=== PATIENT | female | born 1960 | race African-American/Black ===

== ENCOUNTER → 2018-10-20 | Outpatient (CLI) | payer BC ==
--- NOTE | 2018-10-20 17:41 | KCIC ---
Bilateral digital screening mammograms: Reason for examination: Routine screening. Comparison is made to previous studies dated 10/25/2015 and 07/12/2014. Interpretation was made with the benefit of CAD. The skin and nipples show no abnormalities. No abnormal axillary lymph nodes are seen. The breast parenchyma is extremely dense. (Breast density: Category D.) There are no dominant masses, suspicious calcifications or architectural distortion. Impression: No evidence of malignancy. Recommend routine screening. Your patient's mammogram demonstrates that she has dense breast tissue (breast density category C or D), which could hide abnormalities, and if she has other risk factors for breast cancer that have been identified, she might benefit from supplemental screening tests that may be suggested by you as her ordering physician. Dense breast tissue, in and of itself, is a relatively common condition. Therefore, this information is not provided to cause undue concern, but rather to raise your awareness and to promote discussion with your patient regarding the presence of other risk factors, in addition to dense breast tissue. Your patient's mammography results will be sent to her. BI-RAD Category 1: Negative. "Our facility is accredited by the [employer] Mammography [employer]." This patient's information has been entered into a reminder system for the patient to be notified with the results of her examination and a target date for the next mammogram. Electronically signed by: Marilu Dallas MD (10/20/2018 5:38 PM) [id number]
== END | disposition home or self-care (01) ==
LOC: KCIC MAMMO 16:30
PROVIDERS: ATTEND Family Medicine
DX: Z12.31 Encounter for screening mammogram for malignant neoplasm of breast (principal)
CPT/HCPCS: 77067

== ENCOUNTER 2019-07-14 23:01 | Inpatient (IN) | payer BC ==
[~2019-07-14] VITALS: Ht 165.1 cm; Wt 92.1 kg
--- NOTE | 2019-07-14 23:27 | PHYS DOC ---
Adult General Chief Complaint Chief Complaint: ABDOMINAL PAIN HPI HPI Patient is a 59 year old female who presents with complaint of generalized abdominal pain with diarrhea that started earlier today. Patient states that pain has been waxing and waning and at its worst it was a 10 out of 10 and currently is about a 5-6 out of 10. She denies any nausea or vomiting but does admit to a few episodes of diarrhea. She denies any radiation of the pain. She denies any chest pain or shortness of breath. She also denies any fever. Patient is not aware of any alleviating factors and states that pain is worsened with movement and palpation.[] Review of Systems Review of Systems Constitutional: Denies fever or chills [] Respiratory: Denies cough or shortness of breath [] Cardiovascular: No additional information not addressed in HPI [] GI: Complains of abdominal pain without vomiting. Complains of diarrhea [] Integument: Denies rash or skin lesions [] Neurologic: Denies headache, focal weakness or sensory changes [] All other systems were reviewed and found to be within normal limits, except as documented in this note. Current Medications Current Medications Current Medications Medications (Trade) Dose Ordered Sig/Dottie Start Time Stop Time Status Last Admin Dose Admin Fentanyl Citrate (Fentanyl 2ml Vial) 25 mcg PRN Q15MIN PRN 07/14/19 23:30 07/15/19 23:29 07/15/19 03:15 25 MCG Info (CONTRAST GIVEN -- Rx MONITORING) 1 each PRN DAILY PRN 07/15/19 00:45 07/17/19 00:44 Iohexol (Omnipaque 300 Mg/ml) 75 ml 1X ONCE 07/15/19 01:00 07/15/19 01:01 DC 07/15/19 00:54 75 ML Ondansetron HCl (Zofran) 4 mg 1X ONCE 07/15/19 00:00 07/15/19 00:01 DC 07/15/19 00:04 4 MG Piperacillin Sod/ Tazobactam Sod 3.375 gm/Sodium Chloride 50 ml @ 100 mls/hr 1X ONCE 07/15/19 03:00 07/15/19 03:29 DC 07/15/19 02:30 100 MLS/HR Sodium Chloride 1,000 ml @ 1,000 mls/hr Q1H 07/15/19 00:00 07/15/19 00:59 DC 07/15/19 00:04 1,000 MLS/HR Allergies Allergies Allergies Coded Allergies Type Severity Reaction Last Updated Verified No Known Drug Allergies 07/14/19 No Physical Exam Physical Exam Constitutional: Well developed, well nourished, no acute distress, non-toxic appearance. [] HENT: Normocephalic, atraumatic, bilateral external ears normal, oropharynx moist, no oral exudates, nose normal. [] Eyes: PERRLA, EOMI, conjunctiva normal, no discharge. [] Neck: Normal range of motion, no tenderness, supple, no stridor. [] Cardiovascular: Regular rate and rhythm[] Lungs & Thorax: Bilateral breath sounds clear to auscultation [] Abdomen: Bowel sounds normal, soft, with moderate right upper quadrant tend erness. [] Skin: Warm, dry, no erythema, no rash. [] Extremities: No tenderness, no cyanosis, no clubbing, ROM intact. [] Neurologic: Alert and oriented X 3, no focal deficits noted. [] Current Patient Data Vital Signs Vital Signs Date Time Temp Pulse Resp B/P (MAP) Pulse Ox O2 Delivery O2 Flow Rate FiO2 07/15/19 03:15 23 Room Air 07/15/19 02:04 80 189/87 (121) 96 07/14/19 23:15 98.7 98.7 Lab Values Laboratory Tests Test 07/14/19 23:15 07/14/19 23:50 Urine Collection Type Unknown Urine Color Yellow Urine Clarity Clear Urine pH 7.5 Urine Specific [place] 1.020 Urine Protein Negative mg/dL (NEG-TRACE) Urine Glucose (UA) Negative mg/dL (NEG) Urine Ketones (Stick) Negative mg/dL (NEG) Urine Blood Small (NEG) Urine Nitrite Negative (NEG) Urine Bilirubin Negative (NEG) Urine Urobilinogen Dipstick 0.2 mg/dL (0.2 mg/dL) Urine Leukocyte Esterase Negative (NEG) Urine RBC 1-2 /HPF (0-2) Urine WBC 1-4 /HPF (0-4) Urine Squamous Epithelial Cells Few /LPF Urine Bacteria Few /HPF (0-FEW) Urine Hyaline Casts Occasional /HPF Urine Mucus Slight /LPF White Blood Count 10.4 x10^3/uL (4.0-11.0) Red Blood Count 4.80 x10^6/uL (3.50-5.40) Hemoglobin 12.4 g/dL (12.0-15.5) Hematocrit 36.1 % (36.0-47.0) Mean Corpuscular Volume 75 fL (79-100) L Mean Corpuscular Hemoglobin 26 pg (25-35) Mean Corpuscular Hemoglobin Concent 34 g/dL (31-37) Red Cell Distribution Width 15.5 % (11.5-14.5) H Platelet Count 278 x10^3/uL (140-400) Neutrophils (%) (Auto) 80 % (31-73) H Lymphocytes (%) (Auto) 15 % (24-48) L Monocytes (%) (Auto) 4 % (0-9) Eosinophils (%) (Auto) 1 % (0-3) Basophils (%) (Auto) 1 % (0-3) Neutrophils # (Auto) 8.3 x10^3/uL (1.8-7.7) H Lymphocytes # (Auto) 1.5 x10^3/uL (1.0-4.8) Monocytes # (Auto) 0.4 x10^3/uL (0.0-1.1) Eosinophils # (Auto) 0.1 x10^3/uL (0.0-0.7) Basophils # (Auto) 0.1 x10^3/uL (0.0-0.2) Sodium Level 141 mmol/L (136-145) Potassium Level 3.8 mmol/L (3.5-5.1) Chloride Level 104 mmol/L (98-107) Carbon Dioxide Level 28 mmol/L (21-32) Anion Gap 9 (6-14) Blood Urea Nitrogen 11 mg/dL (7-20) Creatinine 0.9 mg/dL (0.6-1.0) Estimated GFR (Cockcroft-Gault) 77.5 BUN/Creatinine Ratio 12 (6-20) Glucose Level 128 mg/dL (70-99) H Calcium Level 8.9 mg/dL (8.5-10.1) Total Bilirubin 0.7 mg/dL (0.2-1.0) Aspartate Amino Transferase (AST) 267 U/L (15-37) H Alanine Aminotransferase (ALT) 274 U/L (14-59) H Alkaline Phosphatase 82 U/L (46-116) Total Protein 7.4 g/dL (6.4-8.2) Albumin 4.1 g/dL (3.4-5.0) Albumin/Globulin Ratio 1.2 (1.0-1.7) Lipase 07293 U/L (73-393) H Laboratory Tests 07/14/19 23:50 Laboratory Tests 07/14/19 23:50 EKG EKG [] Radiology/Procedures Radiology/Procedures [] Impressions: PROCEDURE: CT ABD PELV W/ IV CONTRST ONLY CT abdomen and pelvis with contrast. HISTORY: Abdominal pain CT scan the abdomen pelvis was done using 75 mL Omnipaque 300 contrast. Lung bases are clear except for mild dependent atelectasis. There is diffuse fatty change in the liver. Spleen and adrenal glands are normal. Gallbladder is distended with mild gallbladder wall thickening. Common duct is dilated. There is inflammation about the duodenum and head of the pancreas. The pancreatic duct is dilated. There is some fluid about the tail the pancreas is well which is more suggestive for pancreatitis. There is either a small duodenal diverticulum or a small bubble of free air behind the head of the pancreas, I favor a duodenal diverticulum. Appendix is normal. There is no bowel obstruction. There are uterine leiomyomas. Ovaries are normal. Is no free fluid in the pelvis. IMPRESSION: 1. Distended gallbladder with mild gallbladder wall thickening. 2. Dilated common duct and pancreatic duct. 3. Mild fluid about the head and tail of the pancreas suggests pancreatitis. 4. Small bubbles of gas possibly in duodenal diverticula. 5. Multiple calcified and noncalcified uterine leiomyomas. 6. No bowel obstruction, normal appendix Course & Med Decision Making Course & Med Decision Making Pertinent Labs and Imaging studies reviewed. (See chart for details) [] Dragon Disclaimer Dragon Disclaimer This electronic medical record was generated, in whole or in part, using a voice recognition dictation system. Departure Departure Impression: Primary Impression: Acute pancreatitis Disposition: 09 ADMITTED INPATIENT Admitting Physician: SIERRA Referrals: LUCY SANCHEZ MD (PCP) Problem Qualifiers Primary Impression: Acute pancreatitis Pancreatitis type: biliary Acute pancreatitis complication: unspecified Qualified Codes: K85.10 - Biliary acute pancreatitis without necrosis or infection MARIE BUCK Jr. DO Jul 14, 2019 23:27
[2019-07-14 23:46] LABS: BILIRUBIN,URINE NEGATIVE (NEG); CLARITY,URINE CLEAR; COLOR,URINE YELLOW; NITRITE,URINE NEGATIVE (NEG); PH,URINE 7.5; PROTEIN,URINE NEGATIVE (NEG-TRACE); UROBILINOGEN,URINE 0.2 mg/dL (0.2 mg/dL)
[2019-07-14 23:57] LABS: BACTERIA,URINE FEW /HPF (0-FEW); HYALINE CASTS, URINE OCCASIONAL /HPF; SQUAMOUS EPITHELIAL CELL,UR FEW /LPF
[2019-07-14 23:59] LABS: BASO # 0.1 x10^3/uL (0.0-0.2); BASO % 1 % (0-3); EOS # 0.1 x10^3/uL (0.0-0.7); EOS % 1 % (0-3); HEMATOCRIT 36.1 % (36.0-47.0); HEMOGLOBIN 12.4 g/dL (12.0-15.5); LYMPH # 1.5 x10^3/uL (1.0-4.8); LYMPH % 15 % (24-48); MEAN CORPUSCULAR HEMOGLOBIN 26 pg (25-35); MEAN CORPUSCULAR HGB CONC 34 g/dL (31-37); MEAN CORPUSCULAR VOLUME 75 fL (79-100); MONO # 0.4 x10^3/uL (0.0-1.1); MONO % 4 % (0-9); NEUT # 8.3 x10^3/uL (1.8-7.7); NEUT % 80 % (31-73); PLATELET COUNT 278 x10^3/uL (140-400); RED CELL DISTRIBUTION WIDTH 15.5 % (11.5-14.5); WHITE BLOOD COUNT 10.4 x10^3/uL (4.0-11.0)
[2019-07-15] MEDS ORDERED: IV NORMAL SALINE 1000ML BAG 1,000 ML IV SCH
[2019-07-15] MEDS ORDERED: ONDANSETRON PF 4 MG/2 ML VIAL. IV ONE
[2019-07-15] MEDS: fentaNYL PF VIAL 100 MCG/2 ML VIAL IV PRN ×4 (00:05→07:00)
[2019-07-15 00:06] LABS: CALCIUM 8.9 mg/dL (8.5-10.1); CREATININE 0.9 mg/dL (0.6-1.0); GFR 77.5; POTASSIUM 3.8 mmol/L (3.5-5.1)
[2019-07-15 00:13] LABS: ALBUMIN 4.1 g/dL (3.4-5.0); ALBUMIN/GLOBULIN RATIO 1.2 (1.0-1.7); TOTAL BILIRUBIN 0.7 mg/dL (0.2-1.0); TOTAL PROTEIN 7.4 g/dL (6.4-8.2)
[2019-07-15] MEDS ORDERED: CONTRAST GIVEN. MC PRN (00:45)
[2019-07-15] MEDS ORDERED: IOHEXOL 300 MG/ML 100ML VIAL. IV ONE (01:00)
--- NOTE | 2019-07-15 01:51 | RAD ---
CT abdomen and pelvis with contrast. HISTORY: Abdominal pain CT scan the abdomen pelvis was done using 75 mL Omnipaque 300 contrast. Lung bases are clear except for mild dependent atelectasis. There is diffuse fatty change in the liver. Spleen and adrenal glands are normal. Gallbladder is distended with mild gallbladder wall thickening. Common duct is dilated. There is inflammation about the duodenum and head of the pancreas. The pancreatic duct is dilated. There is some fluid about the tail the pancreas is well which is more suggestive for pancreatitis. There is either a small duodenal diverticulum or a small bubble of free air behind the head of the pancreas, I favor a duodenal diverticulum. Appendix is normal. There is no bowel obstruction. There are uterine leiomyomas. Ovaries are normal. Is no free fluid in the pelvis. IMPRESSION: 1. Distended gallbladder with mild gallbladder wall thickening. 2. Dilated common duct and pancreatic duct. 3. Mild fluid about the head and tail of the pancreas suggests pancreatitis. 4. Small bubbles of gas possibly in duodenal diverticula. 5. Multiple calcified and noncalcified uterine leiomyomas. 6. No bowel obstruction, normal appendix PQRS Compliance Statement: One or more of the following individualized dose reduction techniques were utilized for this examination: 1. Automated exposure control 2. Adjustment of the mA and/or kV according to patient size 3. Use of iterative reconstruction technique Electronically signed by: Lewis Newman MD (07/15/2019 1:48 AM) [id number]
[2019-07-15] MEDS ORDERED: PIPERACILLIN/TAZOBACTAM 3.375 GM in IV NORMAL SALINE 50ML 50 ML IV ONE (03:00)
[2019-07-15] MEDS ORDERED: ONDANSETRON PF 4 MG/2 ML VIAL. IV PRN (04:00)
[2019-07-15] MEDS: IV NORMAL SALINE 1000ML BAG 1,000 ML IV SCH ×3 (04:32→23:55)
--- NOTE | 2019-07-15 05:07 | NUR ---
Pt.arrived from ED via bed W/ pancreatitis. She is A/O x4 and will make needs known.
[2019-07-15 05:09] VITALS: BP 170/79
[2019-07-15 07:00] VITALS: BP 149/72
[2019-07-15] MEDS ORDERED: LOSA100T14 PO (07:25)
[2019-07-15] MEDS ORDERED: SIMV10TA15 PO (07:25)
[2019-07-15 11:00] VITALS: BP 171/85
--- NOTE | 2019-07-15 12:09 | NUR ---
SW following. Discussed with RN, pt is from home with family. RN advised no SW needs at this time. SW will continue to follow should any discharge planning needs arise.
--- NOTE | 2019-07-15 12:53 | PDOC1 ---
History and Physical Date of Admission Date of Admission DATE: 07/15/19 TIME: 12:51 Identification/Chief Complaint Chief Complaint SEEN IN ER , 59 year old female who presents with complaint of generalized abdominal pain with diarrhea that started earlier 07/14 . Patient states that pain has been waxing and waning and at its worst it was a 10 out of 10 and currently is about a 5-6 out of 10. She denies any nausea or vomiting but does admit to a few episodes of diarrhea. She denies any radiation of the pain. She denies any chest pain or shortness of breath. She also denies any fever. no significant etoh intake Past Medical History Cardiovascular: HTN Heme/Onc: No pertinent hx Rheumatologic: No pertinent hx Renal/: No pertinent hx Endocrine: No pertinent hx Family History Family History: Diabetes, Hypertension Social History Smoke: No ALCOHOL: none Drugs: None Current Problem List Problem List Problems Medical Problems: (1) Acute pancreatitis Status: Acute Current Medications Current Medications Current Medications Fentanyl Citrate (Fentanyl 2ml Vial) 25 mcg PRN Q15MIN PRN IV PAIN GREATER THAN 3/10 Last administered on 07/15/19at 03:15; Start 07/14/19 at 23:30; Stop 0 at 23:29 Sodium Chloride 1,000 ml @ 1,000 mls/hr Q1H IV Last administered on 07/15/19at 00:04; Start 07/15/19 at 00:00; Stop 07/15/19 at 00:59; Status DC Ondansetron HCl (Zofran) 4 mg 1X ONCE IV Last administered on 07/15/19at 00:04; Start 07/15/19 at 00:00; Stop 07/15/19 at 00:01; Status DC Iohexol (Omnipaque 300 Mg/ml) 75 ml 1X ONCE IV Last administered on 07/15/19at 00:54; Start 07/15/19 at 01:00; Stop 07/15/19 at 01:01; Status DC Info (CONTRAST GIVEN -- Rx MONITORING) 1 each PRN DAILY PRN MC SEE COMMENTS; Start 07/15/19 at 00:45; Stop 07/17/19 at 00:44 Piperacillin Sod/ Tazobactam Sod 3.375 gm/Sodium Chloride 50 ml @ 100 mls/hr 1X ONCE IV Last administered on 07/15/19at 02:30; Start 07/15/19 at 03:00; Stop 07/15/19 at 03:29; Status DC Ondansetron HCl (Zofran) 4 mg PRN Q8HRS PRN IV NAUSEA/VOMITING 1ST CHOICE; Start 07/15/19 at 04:00; Stop 07/16/19 at 03:59 Fentanyl Citrate (Fentanyl 2ml Vial) 50 mcg PRN Q1HR PRN IV SEVERE PAIN 7-10 Last administered on 07/15/19at 07:00; Start 07/15/19 at 04:00; Stop 07/16/19 at 03:59 Sodium Chloride 1,000 ml @ 125 mls/hr Q8H IV Last administered on 07/15/19at 12:19; Start 07/15/19 at 04:00; Stop 07/16/19 at 03:59 Active Scripts Active Reported Simvastatin 10 Mg Tablet 10 Mg PO HS Losartan Potassium 100 Mg Tablet 100 Mg PO DAILY Allergies Allergies: Coded Allergies: No Known Drug Allergies (Unverified , 07/14/19) ROS Review of System Review of Systems Review of Systems Constitutional: Denies fever or chills [] Respiratory: Denies cough or shortness of breath [] Cardiovascular: No additional information not addressed in HPI [] GI: Complains of abdominal pain without vomiting. Complains of diarrhea [] Integument: Denies rash or skin lesions [] Neurologic: Denies headache, focal weakness or sensory changes [] 14 PT systems were reviewed and found to be within normal limits, except as documented General: No: Chills, Night Sweats, Fatigue, Malaise, Appetite, Other HEENT: No: Heacaches, Visual Changes, Hearing change, Nasal congestion, Nasal discharge, Oral lesions, Sinus pain, Sore Throat, Epistaxis, Sneezing, Snoring, Tinnitus, Vertigo, Vocal changes, Other ALLERGY AND IMMUNOLOGY: No: Hives, Insect Bite Sensitivity, Itchy/Watery Eyes, Nasal Congestion, Post Nasal Drip, Seasonal Allergies, Other Hematological and Lymphatic: No: Bleeding Problems, Blood Clots, Blood Transfusions, Brusing, Night Sweats, Pallor, Swollen Lymph Nodes, Other Gastrointestinal: Yes Abdominal Pain; No Nausea, No Vomiting, No Diarrhea, No Constipation, No Melena, No Hematochezia, No Other Genitourinary: No Dysuria, No Frequency, No Incontinence, No Hematuria, No Retention, No Discharge, No Urgency, No Pain, No Flank Pain, No Other, No , No , No , No , No , No , No Musculoskeletal: No Gait Disturbance, No Joint Pain, No Joint Stiffness, No Joint Swelling, No Muscle Pain, No Muscular Weakness, No Pain In:, No Swelling In:, No Other Physical Exam Physical Exam Physical Exam Physical Exam Constitutional: Well developed, well nourished, no acute distress, non-toxic appearance. [] HENT: Normocephalic, atraumatic, bilateral external ears normal, oropharynx moist, no oral exudates, nose normal. [] Eyes: PERRLA, EOMI, conjunctiva normal, no discharge. [] Neck: Normal range of motion, no tenderness, supple, no stridor. [] Cardiovascular: Regular rate and rhythm[] Lungs & Thorax: Bilateral breath sounds clear to auscultation [] Abdomen: Bowel sounds normal, soft, with moderate right upper quadrant tenderness. [] Skin: Warm, dry, no erythema, no rash. [] Extremities: No tenderness, no cyanosis, no clubbing, ROM intact. [] Neurologic: Alert and oriented X 3, no focal deficits noted. [] General: Alert, Oriented X3, Cooperative, No acute distress HEENT: Atraumatic, EOMI, Mucous membr. moist/pink Lungs: Clear to auscultation Heart: RRR, no thrills Breasts: Not examined Rectal Exam: not examined Extremities: No cyanosis, No edema Neuro: Normal speech, Sensation intact, Cranial nerves 3-12 NL Psych/Mental Status: Mental status NL, Mood NL Vitals Vitals Vital Signs Date Time Temp Pulse Resp B/P (MAP) Pulse Ox O2 Delivery O2 Flow Rate FiO2 07/15/19 11:00 97.9 68 171/85 (113) 94 Room Air 97.9 07/15/19 07:00 18 Labs Labs Laboratory Tests Test 07/14/19 23:15 07/14/19 23:50 Urine Collection Type Unknown Urine Color Yellow Urine Clarity Clear Urine pH 7.5 Urine Specific [place] 1.020 Urine Protein Negative mg/dL (NEG-TRACE) Urine Glucose (UA) Negative mg/dL (NEG) Urine Ketones (Stick) Negative mg/dL (NEG) Urine Blood Small (NEG) Urine Nitrite Negative (NEG) Urine Bilirubin Negative (NEG) Urine Urobilinogen Dipstick 0.2 mg/dL (0.2 mg/dL) Urine Leukocyte Esterase Negative (NEG) Urine RBC 1-2 /HPF (0-2) Urine WBC 1-4 /HPF (0-4) Urine Squamous Epithelial Cells Few /LPF Urine Bacteria Few /HPF (0-FEW) Urine Hyaline Casts Occasional /HPF Urine Mucus Slight /LPF White Blood Count 10.4 x10^3/uL (4.0-11.0) Red Blood Count 4.80 x10^6/uL (3.50-5.40) Hemoglobin 12.4 g/dL (12.0-15.5) Hematocrit 36.1 % (36.0-47.0) Mean Corpuscular Volume 75 fL (79-100) Mean Corpuscular Hemoglobin 26 pg (25-35) Mean Corpuscular Hemoglobin Concent 34 g/dL (31-37) Red Cell Distribution Width 15.5 % (11.5-14.5) Platelet Count 278 x10^3/uL (140-400) Neutrophils (%) (Auto) 80 % (31-73) Lymphocytes (%) (Auto) 15 % (24-48) Monocytes (%) (Auto) 4 % (0-9) Eosinophils (%) (Auto) 1 % (0-3) Basophils (%) (Auto) 1 % (0-3) Neutrophils # (Auto) 8.3 x10^3/uL (1.8-7.7) Lymphocytes # (Auto) 1.5 x10^3/uL (1.0-4.8) Monocytes # (Auto) 0.4 x10^3/uL (0.0-1.1) Eosinophils # (Auto) 0.1 x10^3/uL (0.0-0.7) Basophils # (Auto) 0.1 x10^3/uL (0.0-0.2) Sodium Level 141 mmol/L (136-145) Potassium Level 3.8 mmol/L (3.5-5.1) Chloride Level 104 mmol/L (98-107) Carbon Dioxide Level 28 mmol/L (21-32) Anion Gap 9 (6-14) Blood Urea Nitrogen 11 mg/dL (7-20) Creatinine 0.9 mg/dL (0.6-1.0) Estimated GFR (Cockcroft-Gault) 77.5 BUN/Creatinine Ratio 12 (6-20) Glucose Level 128 mg/dL (70-99) Calcium Level 8.9 mg/dL (8.5-10.1) Total Bilirubin 0.7 mg/dL (0.2-1.0) Aspartate Amino Transf (AST/SGOT) 267 U/L (15-37) Alanine Aminotransferase (ALT/SGPT) 274 U/L (14-59) Alkaline Phosphatase 82 U/L (46-116) Total Protein 7.4 g/dL (6.4-8.2) Albumin 4.1 g/dL (3.4-5.0) Albumin/Globulin Ratio 1.2 (1.0-1.7) Lipase 02611 U/L (73-393) Laboratory Tests Test 07/14/19 23:15 07/14/19 23:50 Urine Collection Type Unknown Urine Color Yellow Urine Clarity Clear Urine pH 7.5 Urine Specific [place] 1.020 Urine Protein Negative mg/dL (NEG-TRACE) Urine Glucose (UA) Negative mg/dL (NEG) Urine Ketones (Stick) Negative mg/dL (NEG) Urine Blood Small (NEG) Urine Nitrite Negative (NEG) Urine Bilirubin Negative (NEG) Urine Urobilinogen Dipstick 0.2 mg/dL (0.2 mg/dL) Urine Leukocyte Esterase Negative (NEG) Urine RBC 1-2 /HPF (0-2) Urine WBC 1-4 /HPF (0-4) Urine Squamous Epithelial Cells Few /LPF Urine Bacteria Few /HPF (0-FEW) Urine Hyaline Casts Occasional /HPF Urine Mucus Slight /LPF White Blood Count 10.4 x10^3/uL (4.0-11.0) Red Blood Count 4.80 x10^6/uL (3.50-5.40) Hemoglobin 12.4 g/dL (12.0-15.5) Hematocrit 36.1 % (36.0-47.0) Mean Corpuscular Volume 75 fL (79-100) Mean Corpuscular Hemoglobin 26 pg (25-35) Mean Corpuscular Hemoglobin Concent 34 g/dL (31-37) Red Cell Distribution Width 15.5 % (11.5-14.5) Platelet Count 278 x10^3/uL (140-400) Neutrophils (%) (Auto) 80 % (31-73) Lymphocytes (%) (Auto) 15 % (24-48) Monocytes (%) (Auto) 4 % (0-9) Eosinophils (%) (Auto) 1 % (0-3) Basophils (%) (Auto) 1 % (0-3) Neutrophils # (Auto) 8.3 x10^3/uL (1.8-7.7) Lymphocytes # (Auto) 1.5 x10^3/uL (1.0-4.8) Monocytes # (Auto) 0.4 x10^3/uL (0.0-1.1) Eosinophils # (Auto) 0.1 x10^3/uL (0.0-0.7) Basophils # (Auto) 0.1 x10^3/uL (0.0-0.2) Sodium Level 141 mmol/L (136-145) Potassium Level 3.8 mmol/L (3.5-5.1) Chloride Level 104 mmol/L (98-107) Carbon Dioxide Level 28 mmol/L (21-32) Anion Gap 9 (6-14) Blood Urea Nitrogen 11 mg/dL (7-20) Creatinine 0.9 mg/dL (0.6-1.0) Estimated GFR (Cockcroft-Gault) 77.5 BUN/Creatinine Ratio 12 (6-20) Glucose Level 128 mg/dL (70-99) Calcium Level 8.9 mg/dL (8.5-10.1) Total Bilirubin 0.7 mg/dL (0.2-1.0) Aspartate Amino Transf (AST/SGOT) 267 U/L (15-37) Alanine Aminotransferase (ALT/SGPT) 274 U/L (14-59) Alkaline Phosphatase 82 U/L (46-116) Total Protein 7.4 g/dL (6.4-8.2) Albumin 4.1 g/dL (3.4-5.0) Albumin/Globulin Ratio 1.2 (1.0-1.7) Lipase 93636 U/L (73-393) Images Images PATIENT: MARTY BARNES ACCOUNT: [id number] : 1960 LOCATION: ER AGE: 59 SEX: F EXAM STATUS: REG ER ORD. PHYSICIAN: MARIE BUCK Jr. DO REASON: abd pain PROCEDURE: CT ABD PELV W/ IV CONTRST ONLY CT abdomen and pelvis with contrast. HISTORY: Abdominal pain CT scan the abdomen pelvis was done using 75 mL Omnipaque 300 contrast. Lung bases are clear except for mild dependent atelectasis. There is diffuse fatty change in the liver. Spleen and adrenal glands are normal. Gallbladder is distended with mild gallbladder wall thickening. Common duct is dilated. There is inflammation about the duodenum and head of the pancreas. The pancreatic duct is dilated. There is some fluid about the tail the pancreas is well which is more suggestive for pancreatitis. There is either a small duodenal diverticulum or a small bubble of free air behind the head of the pancreas, I favor a duodenal diverticulum. Appendix is normal. There is no bowel obstruction. There are uterine leiomyomas. Ovaries are normal. Is no free fluid in the pelvis. IMPRESSION: 1. Distended gallbladder with mild gallbladder wall thickening. 2. Dilated common duct and pancreatic duct. 3. Mild fluid about the head and tail of the pancreas suggests pancreatitis. 4. Small bubbles of gas possibly in duodenal diverticula. 5. Multiple calcified and noncalcified uterine leiomyomas. 6. No bowel obstruction, normal appendix VTE Prophylaxis Ordered VTE Prophylaxis Devices: Yes VTE Pharmacological Prophylaxi: Yes Assessment/Plan Assessment/Plan IMPRESSION: 1. Distended gallbladder with mild gallbladder wall thickening. 2. Dilated common duct and pancreatic duct. 3. fluid about the head and tail of the pancreas suggests pancreatitis. 4. Small bubbles of gas possibly in duodenal diverticula. 5. Multiple calcified and noncalcified uterine leiomyomas. 6, hx htn 7. morbid obesity PLAN ADMIT BOWEL REST IV FLUID SUPPORT GI CONSULT GEN SURGERY CONSULT NPO abdominal sono HUA SUÁREZ MD Jul 15, 2019 12:53
--- NOTE | 2019-07-15 13:48 | PDOC2 ---
GI CONSULT Reason For Consult: pancreatitis HPI: HPI: 59 y/o female admitted through ER last night. While at home watching tv yesterday evening, upper/mid abdominal pain began, gradually became more intense. "Really bad" pain, sometimes "vibrates." No n/v. Had three loose/soft stools at home, no since admission. Labs noted elevated lipase, AST, and ALT. MCV low at 75. On CT: fatty liver, distended GB w/ midl GB wall thickening, dilated CBD and PD, inflammation about duodenum and head of pancreas, fluid about the tail of pancreas, either small duodenal diverticulum or small bubble of free air behind head of pancreas, and uterine leiomyomas. No reflux/heartburn, n/v, constipation, hematochezia, melena, change in appetite, or weight loss. Got a chicken bone stuck in her throat less than a month ago, went to [facility] at the [facility] and was sent to a hospital in [place]. Sounds like she underwent EGD - "it was gone but he could tell where it scratched my throat." No pain like this in the past but sometimes gets gas/discomfort after eating popcorn. Had a screening colonoscopy @ [facility] about 2 years ago and was told to return in 10 years. No GB, liver, pancreas, or PUD history. Denies NSAID use but takes Mucinex frequently. Supposed to see PCP soon for refill of BP med. Also says she has high cholesterol but stopped taking her meds awhile ago "because lots of people don't take medicines." PMH: PMH: HTN, HLD [employer] procedure "with dye" years ago to look for endometriosis FH: Family History: Cancer (brother - lung cancer that spread to his liver from agent orange) Social History: Smoke: No ALCOHOL: rare (maybe one drink 3 times yearly for birthdays) Drugs: None ROS: GEN: Denies fevers, chills, sweats HEENT: Denies blurred vision, sore throat CV: Denies chest pain RESP: Denies shortness of air, cough GI: Per HPI : Denies hematuria, dysuria ENDO: Denies weight changes NEURO: Denies confusion, dizziness MSK: Denies weakness, joint pain/swelling SKIN: Denies jaundice, pruritus Vitals: Vitals: Vital Signs Date Time Temp Pulse Resp B/P (MAP) Pulse Ox O2 Delivery O2 Flow Rate FiO2 07/15/19 11:00 97.9 68 171/85 (113) 94 Room Air 97.9 07/15/19 07:00 18 Labs: Labs: Laboratory Tests Test 07/14/19 23:15 07/14/19 23:50 Urine Collection Type Unknown Urine Color Yellow Urine Clarity Clear Urine pH 7.5 Urine Specific [place] 1.020 Urine Protein Negative mg/dL (NEG-TRACE) Urine Glucose (UA) Negative mg/dL (NEG) Urine Ketones (Stick) Negative mg/dL (NEG) Urine Blood Small (NEG) Urine Nitrite Negative (NEG) Urine Bilirubin Negative (NEG) Urine Urobilinogen Dipstick 0.2 mg/dL (0.2 mg/dL) Urine Leukocyte Esterase Negative (NEG) Urine RBC 1-2 /HPF (0-2) Urine WBC 1-4 /HPF (0-4) Urine Squamous Epithelial Cells Few /LPF Urine Bacteria Few /HPF (0-FEW) Urine Hyaline Casts Occasional /HPF Urine Mucus Slight /LPF White Blood Count 10.4 x10^3/uL (4.0-11.0) Red Blood Count 4.80 x10^6/uL (3.50-5.40) Hemoglobin 12.4 g/dL (12.0-15.5) Hematocrit 36.1 % (36.0-47.0) Mean Corpuscular Volume 75 fL (79-100) Mean Corpuscular Hemoglobin 26 pg (25-35) Mean Corpuscular Hemoglobin Concent 34 g/dL (31-37) Red Cell Distribution Width 15.5 % (11.5-14.5) Platelet Count 278 x10^3/uL (140-400) Neutrophils (%) (Auto) 80 % (31-73) Lymphocytes (%) (Auto) 15 % (24-48) Monocytes (%) (Auto) 4 % (0-9) Eosinophils (%) (Auto) 1 % (0-3) Basophils (%) (Auto) 1 % (0-3) Neutrophils # (Auto) 8.3 x10^3/uL (1.8-7.7) Lymphocytes # (Auto) 1.5 x10^3/uL (1.0-4.8) Monocytes # (Auto) 0.4 x10^3/uL (0.0-1.1) Eosinophils # (Auto) 0.1 x10^3/uL (0.0-0.7) Basophils # (Auto) 0.1 x10^3/uL (0.0-0.2) Sodium Level 141 mmol/L (136-145) Potassium Level 3.8 mmol/L (3.5-5.1) Chloride Level 104 mmol/L (98-107) Carbon Dioxide Level 28 mmol/L (21-32) Anion Gap 9 (6-14) Blood Urea Nitrogen 11 mg/dL (7-20) Creatinine 0.9 mg/dL (0.6-1.0) Estimated GFR (Cockcroft-Gault) 77.5 BUN/Creatinine Ratio 12 (6-20) Glucose Level 128 mg/dL (70-99) Calcium Level 8.9 mg/dL (8.5-10.1) Total Bilirubin 0.7 mg/dL (0.2-1.0) Aspartate Amino Transf (AST/SGOT) 267 U/L (15-37) Alanine Aminotransferase (ALT/SGPT) 274 U/L (14-59) Alkaline Phosphatase 82 U/L (46-116) Total Protein 7.4 g/dL (6.4-8.2) Albumin 4.1 g/dL (3.4-5.0) Albumin/Globulin Ratio 1.2 (1.0-1.7) Lipase 44211 U/L (73-393) Allergies: Coded Allergies: No Known Drug Allergies (Unverified , 07/14/19) Medications: Current Medications Medications (Trade) Dose Ordered Sig/Dottie Route PRN Reason Start Time Stop Time Status Last Admin Dose Admin Fentanyl Citrate (Fentanyl 2ml Vial) 25 mcg PRN Q15MIN PRN IV PAIN GREATER THAN 3/10 07/14/19 23:30 07/15/19 23:29 07/15/19 03:15 Sodium Chloride 1,000 ml @ 1,000 mls/hr Q1H IV 07/15/19 00:00 07/15/19 00:59 DC 07/15/19 00:04 Ondansetron HCl (Zofran) 4 mg 1X ONCE IV 07/15/19 00:00 07/15/19 00:01 DC 07/15/19 00:04 Iohexol (Omnipaque 300 Mg/ml) 75 ml 1X ONCE IV 07/15/19 01:00 07/15/19 01:01 DC 07/15/19 00:54 Piperacillin Sod/ Tazobactam Sod 3.375 gm/Sodium Chloride 50 ml @ 100 mls/hr 1X ONCE IV 07/15/19 03:00 07/15/19 03:29 DC 07/15/19 02:30 Fentanyl Citrate (Fentanyl 2ml Vial) 50 mcg PRN Q1HR PRN IV SEVERE PAIN 7-10 07/15/19 04:00 07/16/19 03:59 07/15/19 07:00 Sodium Chloride 1,000 ml @ 125 mls/hr Q8H IV 07/15/19 04:00 07/16/19 03:59 07/15/19 12:19 Imaging: Imaging: CT A/P Lung bases are clear except for mild dependent atelectasis. There is diffuse fatty change in the liver. Spleen and adrenal glands are normal. Gallbladder is distended with mild gallbladder wall thickening. Common duct is dilated. There is inflammation about the duodenum and head of the pancreas. The pancreatic duct is dilated. There is some fluid about the tail the pancreas is well which is more suggestive for pancreatitis. There is either a small duodenal diverticulum or a small bubble of free air behind the head of the pancreas, I favor a duodenal diverticulum. Appendixis normal. There is no bowel obstruction. There are uterine leiomyomas. Ovaries are normal. Is no free fluid in the pelvis. IMPRESSION: 1. Distended gallbladder with mild gallbladder wall thickening. 2. Dilated common duct and pancreatic duct. 3. Mild fluid about the head and tail of the pancreas suggests pancreatitis. 4. Small bubbles of gas possibly in duodenal diverticula. 5. Multiple calcified and noncalcified uterine leiomyomas. 6. 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 Check triglycerides and iron profile, await US, request records of recent EGD and past colonoscopy. DIANE GONZALES Jul 15, 2019 13:48
--- NOTE | 2019-07-15 14:37 | RAD ---
Examination: ABDOMEN COMPLETE History: Abdominal pain Comparison/Correlation: 07/15/2019 CT Abd and Pelvis with contrast exam Findings: Abdominal ultrasound exam was performed. Fatty infiltration of liver is present. Liver length of 17.2 cm noted. Portal venous flow is normal. Gallbladder wall thickness is 0.6 cm present. Pericholecystic fluid is minimal. No cholelithiasis. Common bile duct of up to 1.3 cm diameter noted. No intrahepatic biliary dilatation. Right kidney measures 11.3 cm x 4.2 cm x 5 cm. The left kidney measures 12.1 cm 5.2 x 4.5 cm. No hydronephrosis. Renal contours are unremarkable. Proximal pancreas has a normal echotexture. Pancreatic ductal dilatation of 0.44 cm evident.. Distal pancreas is obscured by bowel gas. Spleen measures 11 cm longitudinal. Abdominal aorta is unremarkable but only partially visualized. Inferior vena cava is partially obscured. Impression: Thickened gallbladder wall with minimal pericholecystic fluid of concern for acute cholecystitis in the appropriate clinical setting. No cholelithiasis or intrahepatic biliary dilatation. Distention of the common bile duct and slight distention of the pancreatic duct are noted and of indeterminate significance. Electronically signed by: Ben Dave MD (07/15/2019 2:34 PM) [facility]
[2019-07-15 15:00] VITALS: BP 176/86
[2019-07-15] MEDS: hydrALAZINE 20 MG/ML VIAL. IVP PRN ×2 (15:18→21:04)
--- NOTE | 2019-07-15 17:28 | RAD ---
HEPATOBILIARY SCAN History: Abnormal gallbladder. Abdominal pain x1 day. Abnormal CT. Acute pancreatitis. Comparison: Complete abdominal ultrasound and CT abdomen and pelvis with contrast, earlier same day. Procedure: Serial static images are obtained of the liver and biliary system in the frontal projection following IV administration of 5.5 mCi of Technetium 99m Choletec. Findings: There is prompt hepatic clearance of tracer from the blood pool. There is homogeneous distribution throughout the liver. Tracer in common bile duct is identified beginning at 5 minutes. Tracer in expected location of the gallbladder is initially seen at 20 minutes. Tracer in small bowel is identified at 45 minutes. Tracer in gallbladder is confirmed with a right lateral image. IMPRESSION: The cystic duct and common bile duct are patent. Negative for acute cholecystitis. Electronically signed by: Doug Ca MD (07/15/2019 5:25 PM) [id number]
[2019-07-15 19:00] VITALS: BP 174/97
[2019-07-15] MEDS: FAMOTIDINE 20 MG/2 ML VIAL IVP SCH (20:28)
[2019-07-15 23:00] VITALS: BP 168/93
[2019-07-16] MEDS: fentaNYL PF VIAL 100 MCG/2 ML VIAL IV PRN (00:28)
[2019-07-16 03:00] VITALS: BP 180/96
[2019-07-16 07:00] VITALS: BP 177/78
[2019-07-16] MEDS ORDERED: fentaNYL PF VIAL 100 MCG/2 ML VIAL IVP PRN (07:45)
[2019-07-16 08:57] LABS: BASO # 0.1 x10^3/uL (0.0-0.2); BASO % 1 % (0-3); EOS # 0.1 x10^3/uL (0.0-0.7); EOS % 1 % (0-3); HEMATOCRIT 35.6 % (36.0-47.0); HEMOGLOBIN 11.9 g/dL (12.0-15.5); LYMPH # 2.3 x10^3/uL (1.0-4.8); LYMPH % 24 % (24-48); MEAN CORPUSCULAR HEMOGLOBIN 26 pg (25-35); MEAN CORPUSCULAR HGB CONC 34 g/dL (31-37); MEAN CORPUSCULAR VOLUME 76 fL (79-100); MONO # 0.5 x10^3/uL (0.0-1.1); MONO % 5 % (0-9); NEUT % 70 % (31-73); PLATELET COUNT 283 x10^3/uL (140-400); RED BLOOD COUNT 4.66 x10^6/uL (3.50-5.40); RED CELL DISTRIBUTION WIDTH 15.4 % (11.5-14.5)
--- NOTE | 2019-07-16 09:24 | PDOC ---
PROGRESS NOTES History of Present Illness History of Present Illness VTE Prophylaxis Ordered VTE Prophylaxis Devices: Yes VTE Pharmacological Prophylaxi: Yes Assessment/Plan Assessment/Plan IMPRESSION: 1. Distended gallbladder with mild gallbladder wall thickening. 2. Dilated common duct and pancreatic duct. 3. fluid about the head and tail of the pancreas suggests pancreatitis. 4. Small bubbles of gas possibly in duodenal diverticula. 5. Multiple calcified and noncalcified uterine leiomyomas. 6, hx htn 7. morbid obesity 8. HEADACHE 07/16 NEW PLAN ADMIT BOWEL REST IV FLUID SUPPORT GI CONSULT GEN SURGERY CONSULT REVIEWED NPO abdominal sono 07/16 LIPASE 1284 ///RUQ PAIN BETTER Vitals Vitals Vital Signs Date Time Temp Pulse Resp B/P (MAP) Pulse Ox O2 Delivery O2 Flow Rate FiO2 07/16/19 07:00 97.7 82 177/78 (111) 95 Room Air 97.7 07/16/19 03:00 16 Physical Exam General: Alert, Oriented X3, Cooperative, No acute distress Heart: Regular rate, Normal S1 Abdomen: Normal bowel sounds, Soft, No tenderness Extremities: No cyanosis, No edema Labs LABS Laboratory Tests Test 07/15/19 15:00 07/16/19 07:50 Iron Level 39 ug/dL (50-170) Total Iron Binding Capacity 276 ug/dL (250-450) Iron Saturation 14 % (15-34) Triglycerides Level 73 mg/dL (0-150) White Blood Count 10.0 x10^3/uL (4.0-11.0) Red Blood Count 4.66 x10^6/uL (3.50-5.40) Hemoglobin 11.9 g/dL (12.0-15.5) Hematocrit 35.6 % (36.0-47.0) Mean Corpuscular Volume 76 fL (79-100) Mean Corpuscular Hemoglobin 26 pg (25-35) Mean Corpuscular Hemoglobin Concent 34 g/dL (31-37) Red Cell Distribution Width 15.4 % (11.5-14.5) Platelet Count 283 x10^3/uL (140-400) Neutrophils (%) (Auto) 70 % (31-73) Lymphocytes (%) (Auto) 24 % (24-48) Monocytes (%) (Auto) 5 % (0-9) Eosinophils (%) (Auto) 1 % (0-3) Basophils (%) (Auto) 1 % (0-3) Neutrophils # (Auto) 7.0 x10^3/uL (1.8-7.7) Lymphocytes # (Auto) 2.3 x10^3/uL (1.0-4.8) Monocytes # (Auto) 0.5 x10^3/uL (0.0-1.1) Eosinophils # (Auto) 0.1 x10^3/uL (0.0-0.7) Basophils # (Auto) 0.1 x10^3/uL (0.0-0.2) Assessment and Plan Assessmemt and Plan Problems Medical Problems: (1) Acute pancreatitis Status: Acute Comment Review of Relevant I have reviewed the following items vaughn (where applicable) has been applied. Labs Laboratory Tests Test 07/14/19 23:15 07/14/19 23:50 07/15/19 15:00 07/16/19 07:50 Urine Collection Type Unknown Urine Color Yellow Urine Clarity Clear Urine pH 7.5 Urine Specific [place] 1.020 Urine Protein Negative mg/dL (NEG-TRACE) Urine Glucose (UA) Negative mg/dL (NEG) Urine Ketones (Stick) Negative mg/dL (NEG) Urine Blood Small (NEG) Urine Nitrite Negative (NEG) Urine Bilirubin Negative (NEG) Urine Urobilinogen Dipstick 0.2 mg/dL (0.2 mg/dL) Urine Leukocyte Esterase Negative (NEG) Urine RBC 1-2 /HPF (0-2) Urine WBC 1-4 /HPF (0-4) Urine Squamous Epithelial Cells Few /LPF Urine Bacteria Few /HPF (0-FEW) Urine Hyaline Casts Occasional /HPF Urine Mucus Slight /LPF White Blood Count 10.4 x10^3/uL (4.0-11.0) 10.0 x10^3/uL (4.0-11.0) Red Blood Count 4.80 x10^6/uL (3.50-5.40) 4.66 x10^6/uL (3.50-5.40) Hemoglobin 12.4 g/dL (12.0-15.5) 11.9 g/dL (12.0-15.5) Hematocrit 36.1 % (36.0-47.0) 35.6 % (36.0-47.0) Mean Corpuscular Volume 75 fL (79-100) 76 fL (79-100) Mean Corpuscular Hemoglobin 26 pg (25-35) 26 pg (25-35) Mean Corpuscular Hemoglobin Concent 34 g/dL (31-37) 34 g/dL (31-37) Red Cell Distribution Width 15.5 % (11.5-14.5) 15.4 % (11.5-14.5) Platelet Count 278 x10^3/uL (140-400) 283 x10^3/uL (140-400) Neutrophils (%) (Auto) 80 % (31-73) 70 % (31-73) Lymphocytes (%) (Auto) 15 % (24-48) 24 % (24-48) Monocytes (%) (Auto) 4 % (0-9) 5 % (0-9) Eosinophils (%) (Auto) 1 % (0-3) 1 % (0-3) Basophils (%) (Auto) 1 % (0-3) 1 % (0-3) Neutrophils # (Auto) 8.3 x10^3/uL (1.8-7.7) 7.0 x10^3/uL (1.8-7.7) Lymphocytes # (Auto) 1.5 x10^3/uL (1.0-4.8) 2.3 x10^3/uL (1.0-4.8) Monocytes # (Auto) 0.4 x10^3/uL (0.0-1.1) 0.5 x10^3/uL (0.0-1.1) Eosinophils # (Auto) 0.1 x10^3/uL (0.0-0.7) 0.1 x10^3/uL (0.0-0.7) Basophils # (Auto) 0.1 x10^3/uL (0.0-0.2) 0.1 x10^3/uL (0.0-0.2) Sodium Level 141 mmol/L (136-145) Potassium Level 3.8 mmol/L (3.5-5.1) Chloride Level 104 mmol/L (98-107) Carbon Dioxide Level 28 mmol/L (21-32) Anion Gap 9 (6-14) Blood Urea Nitrogen 11 mg/dL (7-20) Creatinine 0.9 mg/dL (0.6-1.0) Estimated GFR (Cockcroft-Gault) 77.5 BUN/Creatinine Ratio 12 (6-20) Glucose Level 128 mg/dL (70-99) Calcium Level 8.9 mg/dL (8.5-10.1) Total Bilirubin 0.7 mg/dL (0.2-1.0) Aspartate Amino Transf (AST/SGOT) 267 U/L (15-37) Alanine Aminotransferase (ALT/SGPT) 274 U/L (14-59) Alkaline Phosphatase 82 U/L (46-116) Total Protein 7.4 g/dL (6.4-8.2) Albumin 4.1 g/dL (3.4-5.0) Albumin/Globulin Ratio 1.2 (1.0-1.7) Lipase 55805 U/L (73-393) Iron Level 39 ug/dL (50-170) Total Iron Binding Capacity 276 ug/dL (250-450) Iron Saturation 14 % (15-34) Triglycerides Level 73 mg/dL (0-150) Laboratory Tests Test 07/15/19 15:00 07/16/19 07:50 Iron Level 39 ug/dL (50-170) Total Iron Binding Capacity 276 ug/dL (250-450) Iron Saturation 14 % (15-34) Triglycerides Level 73 mg/dL (0-150) White Blood Count 10.0 x10^3/uL (4.0-11.0) Red Blood Count 4.66 x10^6/uL (3.50-5.40) Hemoglobin 11.9 g/dL (12.0-15.5) Hematocrit 35.6 % (36.0-47.0) Mean Corpuscular Volume 76 fL (79-100) Mean Corpuscular Hemoglobin 26 pg (25-35) Mean Corpuscular Hemoglobin Concent 34 g/dL (31-37) Red Cell Distribution Width 15.4 % (11.5-14.5) Platelet Count 283 x10^3/uL (140-400) Neutrophils (%) (Auto) 70 % (31-73) Lymphocytes (%) (Auto) 24 % (24-48) Monocytes (%) (Auto) 5 % (0-9) Eosinophils (%) (Auto) 1 % (0-3) Basophils (%) (Auto) 1 % (0-3) Neutrophils # (Auto) 7.0 x10^3/uL (1.8-7.7) Lymphocytes # (Auto) 2.3 x10^3/uL (1.0-4.8) Monocytes # (Auto) 0.5 x10^3/uL (0.0-1.1) Eosinophils # (Auto) 0.1 x10^3/uL (0.0-0.7) Basophils # (Auto) 0.1 x10^3/uL (0.0-0.2) Medications Current Medications Fentanyl Citrate (Fentanyl 2ml Vial) 25 mcg PRN Q15MIN PRN IV PAIN GREATER THAN 3/10 Last administered on 07/15/19at 03:15; Start 07/14/19 at 23:30; Stop 07/15/19 at 23:29; Status DC Sodium Chloride 1,000 ml @ 1,000 mls/hr Q1H IV Last administered on 07/15/19at 00:04; Start 07/15/19 at 00:00; Stop 07/15/19 at 00:59; Status DC Ondansetron HCl (Zofran) 4 mg 1X ONCE IV Last administered on 07/15/19at 00:04; Start 07/15/19 at 00:00; Stop 07/15/19 at 00:01; Status DC Iohexol (Omnipaque 300 Mg/ml) 75 ml 1X ONCE IV Last administered on 07/15/19at 00:54; Start 07/15/19 at 01:00; Stop 07/15/19 at 01:01; Status DC Info (CONTRAST GIVEN -- Rx MONITORING) 1 each PRN DAILY PRN MC SEE COMMENTS; Start 07/15/19 at 00:45; Stop 07/17/19 at 00:44 Piperacillin Sod/ Tazobactam Sod 3.375 gm/Sodium Chloride 50 ml @ 100 mls/hr 1X ONCE IV Last administered on 07/15/19at 02:30; Start 07/15/19 at 03:00; Stop 07/15/19 at 03:29; Status DC Ondansetron HCl (Zofran) 4 mg PRN Q8HRS PRN IV NAUSEA/VOMITING 1ST CHOICE Last administered on 07/15/19at 17:26; Start 07/15/19 at 04:00; Stop 07/16/19 at 03:59; Status DC Fentanyl Citrate (Fentanyl 2ml Vial) 50 mcg PRN Q1HR PRN IV SEVERE PAIN 7-10 Last administered on 07/16/19at 00:28; Start 07/15/19 at 04:00; Stop 07/16/19 at 03:59; Status DC Sodium Chloride 1,000 ml @ 125 mls/hr Q8H IV Last administered on 07/15/19at 23:55; Start 07/15/19 at 04:00; Stop 07/16/19 at 03:59; Status DC Hydralazine HCl (Apresoline Inj) 10 mg PRN Q4HRS PRN IVP ELEVATED BP, SEE COMMENTS Last administered on 07/15/19at 21:04; Start 07/15/19 at 13:00 Famotidine (Pepcid Vial) 20 mg QHS IVP Last administered on 07/15/19at 20:28; Start 07/15/19 at 21:00 Fentanyl Citrate (Fentanyl 2ml Vial) 50 mcg PRN Q2HR PRN IVP SEVERE PAIN; Start 07/16/19 at 07:45 Fentanyl Citrate (Fentanyl 2ml Vial) 25 mcg PRN Q2HR PRN IVP MODERATE PAIN; Start 07/16/19 at 07:45 Ondansetron HCl (Zofran) 4 mg PRN Q8HRS PRN IVP NAUSEA/VOMITING; Start 07/16/19 at 07:45 Sodium Chloride 1,000 ml @ 125 mls/hr Q8H IV ; Start 07/16/19 at 07:45 Active Scripts Active Reported Simvastatin 10 Mg Tablet 10 Mg PO HS Losartan Potassium 100 Mg Tablet 100 Mg PO DAILY Vitals/I & O Vital Sign - Last 24 Hours 07/15/19 07/15/19 07/15/19 07/15/19 11:00 15:00 15:18 19:00 Temp 97.9 97.6 98.8 97.9 97.6 98.8 Pulse 68 67 95 Resp 18 B/P (MAP) 171/85 (113) 176/86 (116) 176/86 174/97 (122) Pulse Ox 94 95 97 O2 Delivery Room Air Room Air 07/15/19 07/15/19 07/15/19 07/16/19 20:00 21:04 23:00 00:28 Temp 98.7 98.7 Pulse 95 91 Resp 18 B/P (MAP) 174/97 168/93 (118) Pulse Ox 95 O2 Delivery Room Air Room Air 07/16/19 07/16/19 07/16/19 01:05 03:00 07:00 Temp 98.2 97.7 98.2 97.7 Pulse 79 82 Resp 16 B/P (MAP) 180/96 (124) 177/78 (111) Pulse Ox 98 95 O2 Delivery Room Air Room Air Intake and Output 0 07/15/19 07/15/19 07/16/19 15:00 23:00 07:00 Intake Total 1000 ml Balance 1000 ml HUA SUÁREZ MD Jul 16, 2019 09:24
[2019-07-16] MEDS: IV NORMAL SALINE 1000ML BAG 1,000 ML IV SCH ×3 (09:34→20:31)
[2019-07-16] MEDS: hydrALAZINE 20 MG/ML VIAL. IVP PRN ×2 (09:35→20:22)
[2019-07-16 09:50] LABS: ALBUMIN 3.5 g/dL (3.4-5.0); CALCIUM 8.4 mg/dL (8.5-10.1); CREATININE 0.7 mg/dL (0.6-1.0); GFR 103.6; POTASSIUM 3.5 mmol/L (3.5-5.1); TOTAL BILIRUBIN 0.8 mg/dL (0.2-1.0); TOTAL PROTEIN 6.9 g/dL (6.4-8.2)
--- NOTE | 2019-07-16 10:07 | PDOC ---
Subjective: Subjective: Abdominal pain is better but now has a headache. Wants to know who will release her back to work. Objective: Vital Signs: Vital Signs Date Time Temp Pulse Resp B/P (MAP) Pulse Ox O2 Delivery O2 Flow Rate FiO2 07/16/19 09:35 82 177/78 07/16/19 07:00 97.7 95 Room Air 97.7 07/16/19 03:00 16 Labs: Laboratory Tests Test 07/15/19 15:00 07/16/19 07:50 Iron Level 39 ug/dL Total Iron Binding Capacity 276 ug/dL Iron Saturation 14 % Triglycerides Level 73 mg/dL White Blood Count 10.0 x10^3/uL Red Blood Count 4.66 x10^6/uL Hemoglobin 11.9 g/dL Hematocrit 35.6 % Mean Corpuscular Volume 76 fL Mean Corpuscular Hemoglobin 26 pg Mean Corpuscular Hemoglobin Concent 34 g/dL Red Cell Distribution Width 15.4 % Platelet Count 283 x10^3/uL Neutrophils (%) (Auto) 70 % Lymphocytes (%) (Auto) 24 % Monocytes (%) (Auto) 5 % Eosinophils (%) (Auto) 1 % Basophils (%) (Auto) 1 % Neutrophils # (Auto) 7.0 x10^3/uL Lymphocytes # (Auto) 2.3 x10^3/uL Monocytes # (Auto) 0.5 x10^3/uL Eosinophils # (Auto) 0.1 x10^3/uL Basophils # (Auto) 0.1 x10^3/uL Sodium Level 140 mmol/L Potassium Level 3.5 mmol/L Chloride Level 105 mmol/L Carbon Dioxide Level 24 mmol/L Anion Gap 11 Blood Urea Nitrogen 8 mg/dL Creatinine 0.7 mg/dL Estimated GFR (Cockcroft-Gault) 103.6 BUN/Creatinine Ratio 11 Glucose Level 72 mg/dL Calcium Level 8.4 mg/dL Total Bilirubin 0.8 mg/dL Aspartate Amino Transf (AST/SGOT) 69 U/L Alanine Aminotransferase (ALT/SGPT) 168 U/L Alkaline Phosphatase 77 U/L Total Protein 6.9 g/dL Albumin 3.5 g/dL Albumin/Globulin Ratio 1.0 Lipase 1284 U/L Current Medicatio Imaging: Abd US 07/15 Fatty infiltration of liver is present. Liver length of 17.2 cm noted. Portal venous flow is normal. Gallbladder wall thickness is 0.6 cm present. Pericholecystic fluid is minimal. No cholelithiasis. Common bile duct of up to 1.3 cm diameter noted. No intrahepatic biliary dilatation. Right kidney measures 11.3 cm x 4.2 cm x 5 cm. The left kidney measures 12.1 cm 5.2 x 4.5 cm. No hydronephrosis. Renal contours are unremarkable. Proximal pancreas has a normal echotexture. Pancreatic ductal dilatation of 0.44 cm evident.. Distal pancreas is obscured by bowel gas. Spleen measures 11 cm longitudinal. Abdominal aorta is unremarkable but only partially visualized. Inferior vena cava is partially obscured. Impression: Thickened gallbladder wall with minimal pericholecystic fluid of concern for acute cholecystitis in the appropriate clinical setting. No cholelithiasis or intrahepatic biliary dilatation. Distention of the common bile duct and slight distention of the pancreatic duct are noted and of indeterminate significance. HIDA w/o EF 07/15 IMPRESSION: The cystic duct and common bile duct are patent. Negative for acute cho lecystitis. PE: GEN: NAD LUNGS: CTAB HEART: RRR ABD: a few quiet BS, some distention, less tender today NEURO/PSYCH: A & O 3 A/P: Pancreatitis - lipase, AST, and ALT better today and normal trigs; fatty liver and ?duodenal diverticulum; no cholecystitis on HIDA and no gallstones on US Microcytic anemia - ?element of iron deficiency, uterine leiomyomas on CT, recent EGD and also colonoscopy within past couple years HTN, ARIAS - per primary -- Surgical consult pending. She asks for water - ?try clears - will review w/ Dr. Purdy. Hemodynamically unstable?: No Is patient in severe pain?: Yes Is NPO status required?: Yes DIANE GONZALES Jul 16, 2019 10:07
[2019-07-16 11:00] VITALS: BP 179/83
--- NOTE | 2019-07-16 11:02 | NUR ---
SW following. Discussed with RN, surgery consult pending. SW will continue to follow. RN anticipates no SW needs.
[2019-07-16] MEDS: ONDANSETRON PF 4 MG/2 ML VIAL. IVP PRN ×2 (12:17→22:32)
--- NOTE | 2019-07-16 12:27 | PDOC2 ---
[facility] RN 07/16/19 1227: CONSULT Date of Consult Date of Consult DATE: 07/16/19 TIME: 12:21 Reason for Consult Reason for Consult: pancreatitis Referring Physician Referring Physician: Dr Purdy Identification/Chief Complaint Chief Complaint abdominal pain Source Source: Chart review, Patient History of Present Illness Reason for Visit: acute onset of upper abdominal pain, radiated down abdomen, some associated nausea and emesis. She did have some diarrhea prior to admission. First episode of pancreatitis. Pain is now improved. No significant alochol use. Noted imaging, no cholelithiasis, HIDA without cholecystitis, trigs normal Past Medical History Cardiovascular: HTN Heme/Onc: No pertinent hx Rheumatologic: No pertinent hx Renal/: No pertinent hx Endocrine: No pertinent hx Past Surgical History Past Surgical History: No pertinent history Family History Family History: Diabetes, Hypertension Social History No ALCOHOL: rare (maybe one drink 3 times yearly for birthdays) Drugs: None Current Problem List Problem List Problems Medical Problems: (1) Acute pancreatitis Status: Acute Current Medications Current Medications Current Medications Fentanyl Citrate (Fentanyl 2ml Vial) 25 mcg PRN Q15MIN PRN IV PAIN GREATER THAN 3/10 Last administered on 07/15/19at 03:15; Start 07/14/19 at 23:30; Stop 07/15/19 at 23:29; Status DC Sodium Chloride 1,000 ml @ 1,000 mls/hr Q1H IV Last administered on 07/15/19at 00:04; Start 07/15/19 at 00:00; Stop 07/15/19 at 00:59; Status DC Ondansetron HCl (Zofran) 4 mg 1X ONCE IV Last administered on 07/15/19at 00:04; Start 07/15/19 at 00:00; Stop 07/15/19 at 00:01; Status DC Iohexol (Omnipaque 300 Mg/ml) 75 ml 1X ONCE IV Last administered on 07/15/19at 00:54; Start 07/15/19 at 01:00; Stop 07/15/19 at 01:01; Status DC Info (CONTRAST GIVEN -- Rx MONITORING) 1 each PRN DAILY PRN MC SEE COMMENTS; Start 07/15/19 at 00:45; Stop 07/17/19 at 00:44 Piperacillin Sod/ Tazobactam Sod 3.375 gm/Sodium Chloride 50 ml @ 100 mls/hr 1X ONCE IV Last administered on 07/15/19at 02:30; Start 07/15/19 at 03:00; Stop 07/15/19 at 03:29; Status DC Ondansetron HCl (Zofran) 4 mg PRN Q8HRS PRN IV NAUSEA/VOMITING 1ST CHOICE Last administered on 07/15/19at 17:26; Start 07/15/19 at 04:00; Stop 07/16/19 at 03:59; Status DC Fentanyl Citrate (Fentanyl 2ml Vial) 50 mcg PRN Q1HR PRN IV SEVERE PAIN 7-10 Last administered on 07/16/19at 00:28; Start 07/15/19 at 04:00; Stop 07/16/19 at 03:59; Status DC Sodium Chloride 1,000 ml @ 125 mls/hr Q8H IV Last administered on 07/15/19at 23:55; Start 07/15/19 at 04:00; Stop 07/16/19 at 03:59; Status DC Hydralazine HCl (Apresoline Inj) 10 mg PRN Q4HRS PRN IVP ELEVATED BP, SEE COMMENTS Last administered on 07/16/19at 09:35; Start 07/15/19 at 13:00 Famotidine (Pepcid Vial) 20 mg QHS IVP Last administered on 07/15/19at 20:28; Start 07/15/19 at 21:00 Fentanyl Citrate (Fentanyl 2ml Vial) 50 mcg PRN Q2HR PRN IVP SEVERE PAIN; Start 07/16/19 at 07:45 Fentanyl Citrate (Fentanyl 2ml Vial) 25 mcg PRN Q2HR PRN IVP MODERATE PAIN Last administered on 07/16/19at 10:34; Start 07/16/19 at 07:45 Ondansetron HCl (Zofran) 4 mg PRN Q8HRS PRN IVP NAUSEA/VOMITING Last administered on 07/16/19at 12:17; Start 07/16/19 at 07:45 Sodium Chloride 1,000 ml @ 125 mls/hr Q8H IV Last administered on 07/16/19at 09:34; Start 07/16/19 at 07:45 Active Scripts Active Reported Simvastatin 10 Mg Tablet 10 Mg PO HS Losartan Potassium 100 Mg Tablet 100 Mg PO DAILY Allergies Allergies: Coded Allergies: No Known Drug Allergies (Unverified , 07/14/19) ROS General: No: Chills, Other (fevers) PSYCHOLOGICAL ROS: No: Anxiety, Depression Eyes: No Blurry vision, No Double vision HEENT: YES: Heacaches; No: Sore Throat Hematological and Lymphatic: No: Bleeding Problems, Blood Clots Respiratory: No: Cough, Shortness of breath Cardiovascular: No Chest Pain, No Palpitations Gastrointestinal: Yes Other (see hpi) Genitourinary: No Dysuria, No Retention Musculoskeletal: No Joint Pain, No Muscle Pain Neurological: No Impaired Coord/balance, No Numbness/Tingling Skin: No Pruritus, No Rash Physical Exam General: Alert, Oriented X3, Cooperative, No acute distress HEENT: PERRLA, Mucous membr. moist/pink Lungs: Clear to auscultation, Normal air movement Heart: Regular rate, Normal S1, Normal S2 Abdomen: Soft, Other (ND, NTTP on exam currently ) Extremities: No clubbing, No cyanosis Skin: No rashes, No breakdown Neuro: Normal gait, Normal speech Psych/Mental Status: Mental status NL, Mood NL MUSCULOSKELETAL: No deformity, No swelling Vitals VITALS Vital Signs Date Time Temp Pulse Resp B/P (MAP) Pulse Ox O2 Delivery O2 Flow Rate FiO2 07/16/19 11:00 98.2 89 179/83 (115) 95 Room Air 98.2 07/16/19 10:34 20 Labs Labs Laboratory Tests Test 07/14/19 23:15 07/14/19 23:50 07/15/19 15:00 07/16/19 07:50 Urine Collection Type Unknown Urine Color Yellow Urine Clarity Clear Urine pH 7.5 Urine Specific [place] 1.020 Urine Protein Negative mg/dL (NEG-TRACE) Urine Glucose (UA) Negative mg/dL (NEG) Urine Ketones (Stick) Negative mg/dL (NEG) Urine Blood Small (NEG) Urine Nitrite Negative (NEG) Urine Bilirubin Negative (NEG) Urine Urobilinogen Dipstick 0.2 mg/dL (0.2 mg/dL) Urine Leukocyte Esterase Negative (NEG) Urine RBC 1-2 /HPF (0-2) Urine WBC 1-4 /HPF (0-4) Urine Squamous Epithelial Cells Few /LPF Urine Bacteria Few /HPF (0-FEW) Urine Hyaline Casts Occasional /HPF Urine Mucus Slight /LPF White Blood Count 10.4 x10^3/uL (4.0-11.0) 10.0 x10^3/uL (4.0-11.0) Red Blood Count 4.80 x10^6/uL (3.50-5.40) 4.66 x10^6/uL (3.50-5.40) Hemoglobin 12.4 g/dL (12.0-15.5) 11.9 g/dL (12.0-15.5) Hematocrit 36.1 % (36.0-47.0) 35.6 % (36.0-47.0) Mean Corpuscular Volume 75 fL (79-100) 76 fL (79-100) Mean Corpuscular Hemoglobin 26 pg (25-35) 26 pg (25-35) Mean Corpuscular Hemoglobin Concent 34 g/dL (31-37) 34 g/dL (31-37) Red Cell Distribution Width 15.5 % (11.5-14.5) 15.4 % (11.5-14.5) Platelet Count 278 x10^3/uL (140-400) 283 x10^3/uL (140-400) Neutrophils (%) (Auto) 80 % (31-73) 70 % (31-73) Lymphocytes (%) (Auto) 15 % (24-48) 24 % (24-48) Monocytes (%) (Auto) 4 % (0-9) 5 % (0-9) Eosinophils (%) (Auto) 1 % (0-3) 1 % (0-3) Basophils (%) (Auto) 1 % (0-3) 1 % (0-3) Neutrophils # (Auto) 8.3 x10^3/uL (1.8-7.7) 7.0 x10^3/uL (1.8-7.7) Lymphocytes # (Auto) 1.5 x10^3/uL (1.0-4.8) 2.3 x10^3/uL (1.0-4.8) Monocytes # (Auto) 0.4 x10^3/uL (0.0-1.1) 0.5 x10^3/uL (0.0-1.1) Eosinophils # (Auto) 0.1 x10^3/uL (0.0-0.7) 0.1 x10^3/uL (0.0-0.7) Basophils # (Auto) 0.1 x10^3/uL (0.0-0.2) 0.1 x10^3/uL (0.0-0.2) Sodium Level 141 mmol/L (136-145) 140 mmol/L (136-145) Potassium Level 3.8 mmol/L (3.5-5.1) 3.5 mmol/L (3.5-5.1) Chloride Level 104 mmol/L (98-107) 105 mmol/L (98-107) Carbon Dioxide Level 28 mmol/L (21-32) 24 mmol/L (21-32) Anion Gap 9 (6-14) 11 (6-14) Blood Urea Nitrogen 11 mg/dL (7-20) 8 mg/dL (7-20) Creatinine 0.9 mg/dL (0.6-1.0) 0.7 mg/dL (0.6-1.0) Estimated GFR (Cockcroft-Gault) 77.5 103.6 BUN/Creatinine Ratio 12 (6-20) 11 (6-20) Glucose Level 128 mg/dL (70-99) 72 mg/dL (70-99) Calcium Level 8.9 mg/dL (8.5-10.1) 8.4 mg/dL (8.5-10.1) Total Bilirubin 0.7 mg/dL (0.2-1.0) 0.8 mg/dL (0.2-1.0) Aspartate Amino Transf (AST/SGOT) 267 U/L (15-37) 69 U/L (15-37) Alanine Aminotransferase (ALT/SGPT) 274 U/L (14-59) 168 U/L (14-59) Alkaline Phosphatase 82 U/L (46-116) 77 U/L (46-116) Total Protein 7.4 g/dL (6.4-8.2) 6.9 g/dL (6.4-8.2) Albumin 4.1 g/dL (3.4-5.0) 3.5 g/dL (3.4-5.0) Albumin/Globulin Ratio 1.2 (1.0-1.7) 1.0 (1.0-1.7) Lipase 42116 U/L (73-393) 1284 U/L (73-393) Iron Level 39 ug/dL (50-170) Total Iron Binding Capacity 276 ug/dL (250-450) Iron Saturation 14 % (15-34) Triglycerides Level 73 mg/dL (0-150) Laboratory Tests Test 07/15/19 15:00 07/16/19 07:50 Iron Level 39 ug/dL (50-170) Total Iron Binding Capacity 276 ug/dL (250-450) Iron Saturation 14 % (15-34) Triglycerides Level 73 mg/dL (0-150) White Blood Count 10.0 x10^3/uL (4.0-11.0) Red Blood Count 4.66 x10^6/uL (3.50-5.40) Hemoglobin 11.9 g/dL (12.0-15.5) Hematocrit 35.6 % (36.0-47.0) Mean Corpuscular Volume 76 fL (79-100) Mean Corpuscular Hemoglobin 26 pg (25-35) Mean Corpuscular Hemoglobin Concent 34 g/dL (31-37) Red Cell Distribution Width 15.4 % (11.5-14.5) Platelet Count 283 x10^3/uL (140-400) Neutrophils (%) (Auto) 70 % (31-73) Lymphocytes (%) (Auto) 24 % (24-48) Monocytes (%) (Auto) 5 % (0-9) Eosinophils (%) (Auto) 1 % (0-3) Basophils (%) (Auto) 1 % (0-3) Neutrophils # (Auto) 7.0 x10^3/uL (1.8-7.7) Lymphocytes # (Auto) 2.3 x10^3/uL (1.0-4.8) Monocytes # (Auto) 0.5 x10^3/uL (0.0-1.1) Eosinophils # (Auto) 0.1 x10^3/uL (0.0-0.7) Basophils # (Auto) 0.1 x10^3/uL (0.0-0.2) Sodium Level 140 mmol/L (136-145) Potassium Level 3.5 mmol/L (3.5-5.1) Chloride Level 105 mmol/L (98-107) Carbon Dioxide Level 24 mmol/L (21-32) Anion Gap 11 (6-14) Blood Urea Nitrogen 8 mg/dL (7-20) Creatinine 0.7 mg/dL (0.6-1.0) Estimated GFR (Cockcroft-Gault) 103.6 BUN/Creatinine Ratio 11 (6-20) Glucose Level 72 mg/dL (70-99) Calcium Level 8.4 mg/dL (8.5-10.1) Total Bilirubin 0.8 mg/dL (0.2-1.0) Aspartate Amino Transf (AST/SGOT) 69 U/L (15-37) Alanine Aminotransferase (ALT/SGPT) 168 U/L (14-59) Alkaline Phosphatase 77 U/L (46-116) Total Protein 6.9 g/dL (6.4-8.2) Albumin 3.5 g/dL (3.4-5.0) Albumin/Globulin Ratio 1.0 (1.0-1.7) Lipase 1284 U/L (73-393) Assessment/Plan Assessment/Plan pancreatitis no cholelithiasis, normal trigs, HIda noted, ? possible doudenal diverticulum, ? passed stone will review with Gi supportive measures for pancreatitis DEE DEE YEH MD 07/16/19 1448: CONSULT Assessment/Plan Assessment/Plan Pt seen and examined by myself; 59 year old female admitted with acute onset abdominal pain, across middle, severe and sharp; evaluation showed pancreatitis; her pain is somewhat improved today; PMH/PSH/ROS/SH as above; exam: alert, oriented, no distress, lungs clear, heart RR and R, abdomen soft, some tenderness mid abdomen, no guarding, extremities neg for edema; xrays and labs reviewed; A/P) Pancreatitis, no gallstones noted on sono, ?etiology, ?microstones, ?passed stone, ?diverticulum; GI following and planning MRCP. Will coordinate with them regarding final recommendations, ?benefit with lap trista. If surgery desired could schedule Saturday. BG EDMONDSON APRN Jul 16, 2019 12:27 DEE DEE YEH MD Jul 16, 2019 14:48
--- NOTE | 2019-07-16 13:21 | PDOC2 ---
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 The pt reports that the pain began a couple of days ago but became increasingly worse. She has never had a pain like this before. During her w/u in the ER she underwent a CT revealin. Distended gallbladder with mild gallbladder wall thickening. 2. Dilated common duct and pancreatic duct. 3. Mild fluid about the head and tail of the pancreas suggests pancreatitis. 4. Small bubbles of gas possibly in duodenal diverticula. 5. Multiple calcified and noncalcified uterine leiomyomas. 6. No bowel obstruction, normal appendix Due to the pancreas and gallbladder findings additional imaging and consults were performed. The pt was unaware of her fibroids prior to this exam. The pt reports no issues with fibroids prior to this. The pt went through menopause about 5yrs ago. The pt has had no bleeding since. She does report only mild symptoms of menopause. The pt states that when she was younger she was dxed with endometrosis and dysmenorrhea. The pt also was found to be anemic on admission, but this also appears to be unrelated to any spotlight operator cause. The pt states that her pain has improved but around the same time it resolved she began to have a ARIAS. She is currently NPO. 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 No h/o ERT/HRT H/o OCPs for 5-10yrs 13yo / regular / 54yo SH: no tob, no EtOH Past Medical History Cardiovascular: HTN Heme/Onc: No pertinent hx Rheumatologic: No pertinent hx Renal/: No pertinent hx Endocrine: No pertinent hx Past Surgical History Past Surgical History: No pertinent history Family History Family History: Diabetes, Hypertension Social History No ALCOHOL: rare (maybe one drink 3 times yearly for birthdays) Drugs: None Current Problem List Problem List Problems Medical Problems: (1) Acute pancreatitis Status: Acute Current Medications Current Medications Current Medications Fentanyl Citrate (Fentanyl 2ml Vial) 25 mcg PRN Q15MIN PRN IV PAIN GREATER THAN 3/10 Last administered on 07/15/19at 03:15; Start 07/14/19 at 23:30; Stop 07/15/19 at 23:29; Status DC Sodium Chloride 1,000 ml @ 1,000 mls/hr Q1H IV Last administered on 07/15/19at 00:04; Start 07/15/19 at 00:00; Stop 07/15/19 at 00:59; Status DC Ondansetron HCl (Zofran) 4 mg 1X ONCE IV Last administered on 07/15/19at 00:04; Start 07/15/19 at 00:00; Stop 07/15/19 at 00:01; Status DC Iohexol (Omnipaque 300 Mg/ml) 75 ml 1X ONCE IV Last administered on 07/15/19at 00:54; Start 07/15/19 at 01:00; Stop 07/15/19 at 01:01; Status DC Info (CONTRAST GIVEN -- Rx MONITORING) 1 each PRN DAILY PRN MC SEE COMMENTS; Start 07/15/19 at 00:45; Stop 07/17/19 at 00:44 Piperacillin Sod/ Tazobactam Sod 3.375 gm/Sodium Chloride 50 ml @ 100 mls/hr 1X ONCE IV Last administered on 07/15/19at 02:30; Start 07/15/19 at 03:00; Stop 07/15/19 at 03:29; Status DC Ondansetron HCl (Zofran) 4 mg PRN Q8HRS PRN IV NAUSEA/VOMITING 1ST CHOICE Last administered on 07/15/19at 17:26; Start 07/15/19 at 04:00; Stop 07/16/19 at 03:59; Status DC Fentanyl Citrate (Fentanyl 2ml Vial) 50 mcg PRN Q1HR PRN IV SEVERE PAIN 7-10 Last administered on 07/16/19at 00:28; Start 07/15/19 at 04:00; Stop 07/16/19 at 03:59; Status DC Sodium Chloride 1,000 ml @ 125 mls/hr Q8H IV Last administered on 07/15/19at 23:55; Start 07/15/19 at 04:00; Stop 07/16/19 at 03:59; Status DC Hydralazine HCl (Apresoline Inj) 10 mg PRN Q4HRS PRN IVP ELEVATED BP, SEE COMMENTS Last administered on 07/16/19at 09:35; Start 07/15/19 at 13:00 Famotidine (Pepcid Vial) 20 mg QHS IVP Last administered on 07/15/19at 20:28; Start 07/15/19 at 21:00 Fentanyl Citrate (Fentanyl 2ml Vial) 50 mcg PRN Q2HR PRN IVP SEVERE PAIN; Start 07/16/19 at 07:45 Fentanyl Citrate (Fentanyl 2ml Vial) 25 mcg PRN Q2HR PRN IVP MODERATE PAIN Last administered on 07/16/19at 10:34; Start 07/16/19 at 07:45 Ondansetron HCl (Zofran) 4 mg PRN Q8HRS PRN IVP NAUSEA/VOMITING Last administered on 07/16/19at 12:17; Start 07/16/19 at 07:45 Sodium Chloride 1,000 ml @ 125 mls/hr Q8H IV Last administered on 07/16/19at 09:34; Start 07/16/19 at 07:45 Active Scripts Active Reported Simvastatin 10 Mg Tablet 10 Mg PO HS Losartan Potassium 100 Mg Tablet 100 Mg PO DAILY Allergies Allergies: Coded Allergies: No Known Drug Allergies (Unverified , 07/14/19) Physical Exam Physical Exam PE General: Alert, Oriented X3, Cooperative, No acute distress HEENT: PERRLA, Mucous membr. moist/pink Lungs: Clear to auscultation, Normal air movement Heart: Regular rate, Normal S1, Normal S2 Abdomen: Soft, currently NT, ND Extremities: No clubbing, No cyanosis Skin: No rashes, No breakdown Neuro: Normal gait, Normal speech Psych/Mental Status: Mental status NL, Mood NL MUSCULOSKELETAL: No deformity, No swelling Vitals VITALS Vital Signs Date Time Temp Pulse Resp B/P (MAP) Pulse Ox O2 Delivery O2 Flow Rate FiO2 07/16/19 11:00 98.2 89 179/83 (115) 95 Room Air 98.2 07/16/19 10:34 20 Labs Labs Laboratory Tests Test 07/14/19 23:15 07/14/19 23:50 07/15/19 15:00 07/16/19 07:50 Urine Collection Type Unknown Urine Color Yellow Urine Clarity Clear Urine pH 7.5 Urine Specific [place] 1.020 Urine Protein Negative mg/dL (NEG-TRACE) Urine Glucose (UA) Negative mg/dL (NEG) Urine Ketones (Stick) Negative mg/dL (NEG) Urine Blood Small (NEG) Urine Nitrite Negative (NEG) Urine Bilirubin Negative (NEG) Urine Urobilinogen Dipstick 0.2 mg/dL (0.2 mg/dL) Urine Leukocyte Esterase Negative (NEG) Urine RBC 1-2 /HPF (0-2) Urine WBC 1-4 /HPF (0-4) Urine Squamous Epithelial Cells Few /LPF Urine Bacteria Few /HPF (0-FEW) Urine Hyaline Casts Occasional /HPF Urine Mucus Slight /LPF White Blood Count 10.4 x10^3/uL (4.0-11.0) 10.0 x10^3/uL (4.0-11.0) Red Blood Count 4.80 x10^6/uL (3.50-5.40) 4.66 x10^6/uL (3.50-5.40) Hemoglobin 12.4 g/dL (12.0-15.5) 11.9 g/dL (12.0-15.5) Hematocrit 36.1 % (36.0-47.0) 35.6 % (36.0-47.0) Mean Corpuscular Volume 75 fL (79-100) 76 fL (79-100) Mean Corpuscular Hemoglobin 26 pg (25-35) 26 pg (25-35) Mean Corpuscular Hemoglobin Concent 34 g/dL (31-37) 34 g/dL (31-37) Red Cell Distribution Width 15.5 % (11.5-14.5) 15.4 % (11.5-14.5) Platelet Count 278 x10^3/uL (140-400) 283 x10^3/uL (140-400) Neutrophils (%) (Auto) 80 % (31-73) 70 % (31-73) Lymphocytes (%) (Auto) 15 % (24-48) 24 % (24-48) Monocytes (%) (Auto) 4 % (0-9) 5 % (0-9) Eosinophils (%) (Auto) 1 % (0-3) 1 % (0-3) Basophils (%) (Auto) 1 % (0-3) 1 % (0-3) Neutrophils # (Auto) 8.3 x10^3/uL (1.8-7.7) 7.0 x10^3/uL (1.8-7.7) Lymphocytes # (Auto) 1.5 x10^3/uL (1.0-4.8) 2.3 x10^3/uL (1.0-4.8) Monocytes # (Auto) 0.4 x10^3/uL (0.0-1.1) 0.5 x10^3/uL (0.0-1.1) Eosinophils # (Auto) 0.1 x10^3/uL (0.0-0.7) 0.1 x10^3/uL (0.0-0.7) Basophils # (Auto) 0.1 x10^3/uL (0.0-0.2) 0.1 x10^3/uL (0.0-0.2) Sodium Level 141 mmol/L (136-145) 140 mmol/L (136-145) Potassium Level 3.8 mmol/L (3.5-5.1) 3.5 mmol/L (3.5-5.1) Chloride Level 104 mmol/L (98-107) 105 mmol/L (98-107) Carbon Dioxide Level 28 mmol/L (21-32) 24 mmol/L (21-32) Anion Gap 9 (6-14) 11 (6-14) Blood Urea Nitrogen 11 mg/dL (7-20) 8 mg/dL (7-20) Creatinine 0.9 mg/dL (0.6-1.0) 0.7 mg/dL (0.6-1.0) Estimated GFR (Cockcroft-Gault) 77.5 103.6 BUN/Creatinine Ratio 12 (6-20) 11 (6-20) Glucose Level 128 mg/dL (70-99) 72 mg/dL (70-99) Calcium Level 8.9 mg/dL (8.5-10.1) 8.4 mg/dL (8.5-10.1) Total Bilirubin 0.7 mg/dL (0.2-1.0) 0.8 mg/dL (0.2-1.0) Aspartate Amino Transf (AST/SGOT) 267 U/L (15-37) 69 U/L (15-37) Alanine Aminotransferase (ALT/SGPT) 274 U/L (14-59) 168 U/L (14-59) Alkaline Phosphatase 82 U/L (46-116) 77 U/L (46-116) Total Protein 7.4 g/dL (6.4-8.2) 6.9 g/dL (6.4-8.2) Albumin 4.1 g/dL (3.4-5.0) 3.5 g/dL (3.4-5.0) Albumin/Globulin Ratio 1.2 (1.0-1.7) 1.0 (1.0-1.7) Lipase 06508 U/L (73-393) 1284 U/L (73-393) Iron Level 39 ug/dL (50-170) Total Iron Binding Capacity 276 ug/dL (250-450) Iron Saturation 14 % (15-34) Triglycerides Level 73 mg/dL (0-150) Laboratory Tests Test 07/15/19 15:00 07/16/19 07:50 Iron Level 39 ug/dL (50-170) Total Iron Binding Capacity 276 ug/dL (250-450) Iron Saturation 14 % (15-34) Triglycerides Level 73 mg/dL (0-150) White Blood Count 10.0 x10^3/uL (4.0-11.0) Red Blood Count 4.66 x10^6/uL (3.50-5.40) Hemoglobin 11.9 g/dL (12.0-15.5) Hematocrit 35.6 % (36.0-47.0) Mean Corpuscular Volume 76 fL (79-100) Mean Corpuscular Hemoglobin 26 pg (25-35) Mean Corpuscular Hemoglobin Concent 34 g/dL (31-37) Red Cell Distribution Width 15.4 % (11.5-14.5) Platelet Count 283 x10^3/uL (140-400) Neutrophils (%) (Auto) 70 % (31-73) Lymphocytes (%) (Auto) 24 % (24-48) Monocytes (%) (Auto) 5 % (0-9) Eosinophils (%) (Auto) 1 % (0-3) Basophils (%) (Auto) 1 % (0-3) Neutrophils # (Auto) 7.0 x10^3/uL (1.8-7.7) Lymphocytes # (Auto) 2.3 x10^3/uL (1.0-4.8) Monocytes # (Auto) 0.5 x10^3/uL (0.0-1.1) Eosinophils # (Auto) 0.1 x10^3/uL (0.0-0.7) Basophils # (Auto) 0.1 x10^3/uL (0.0-0.2) Sodium Level 140 mmol/L (136-145) Potassium Level 3.5 mmol/L (3.5-5.1) Chloride Level 105 mmol/L (98-107) Carbon Dioxide Level 24 mmol/L (21-32) Anion Gap 11 (6-14) Blood Urea Nitrogen 8 mg/dL (7-20) Creatinine 0.7 mg/dL (0.6-1.0) Estimated GFR (Cockcroft-Gault) 103.6 BUN/Creatinine Ratio 11 (6-20) Glucose Level 72 mg/dL (70-99) Calcium Level 8.4 mg/dL (8.5-10.1) Total Bilirubin 0.8 mg/dL (0.2-1.0) Aspartate Amino Transf (AST/SGOT) 69 U/L (15-37) Alanine Aminotransferase (ALT/SGPT) 168 U/L (14-59) Alkaline Phosphatase 77 U/L (46-116) Total Protein 6.9 g/dL (6.4-8.2) Albumin 3.5 g/dL (3.4-5.0) Albumin/Globulin Ratio 1.0 (1.0-1.7) Lipase 1284 U/L (73-393) Assessment/Plan Assessment/Plan Assessment: 59y with acute pancreatitis Plan: 1.) Pelvic pain Most likely due to pancreatitis, most likely not related to spotlight operator cause (ie uterine leiomyomas), pain has improved since admission 2.) Uterine leiomyomas pt unaware of uterine leiomyomas throughout her life. Leiomyomas generally become smaller and asymptomatic in postmenopausal women; therefore, intervention is not usually indicated. Even though size of leiomyomas not reported, unnecessary at this time to get additional images (like a pelvic u/s) to better characterize the masses. 3.) Menopause symptoms mild at best. Never has been on ERT/HRT. Reports no postmenopausal bleeding so no need for additional w/u like endometrial biopsy or u/s to determine endometrial thickness 4.) Anemia Hgb 11.9 5.) H/o endometriosis and dysmenorrhea no issues with either since menopause 6.) Acute pancreatitis management per GI and surgery 7.) HTN management per hospitalist 8.) Will continue to follow YUNIER LANDIS MD Jul 16, 2019 13:20
[2019-07-16 15:00] VITALS: BP 184/84
[2019-07-16 19:00] VITALS: BP 178/93
[2019-07-16] MEDS: FAMOTIDINE 20 MG/2 ML VIAL IVP SCH (21:33)
[2019-07-16] MEDS: fentaNYL PF VIAL 100 MCG/2 ML VIAL IVP PRN (22:31)
[2019-07-16 23:02] VITALS: BP 197/92
[2019-07-16] MEDS: LOSARTAN POTASSIUM 50 MG TABLET. PO SCH (23:56)
[2019-07-17] VITALS (9 sets, daily range): BP systolic 153–202; BP diastolic 71–98
[2019-07-17] MEDS: fentaNYL PF VIAL 100 MCG/2 ML VIAL IVP PRN ×3 (02:11→21:27)
[2019-07-17] MEDS: hydrALAZINE 20 MG/ML VIAL. IVP PRN ×3 (02:13→21:32)
[2019-07-17] MEDS: ONDANSETRON PF 4 MG/2 ML VIAL. IVP PRN (03:49)
[2019-07-17] MEDS ORDERED: PROCHLORPERAZINE 10 MG/2 ML VIAL. IV PRN (04:30)
[2019-07-17] MEDS: IV NORMAL SALINE 1000ML BAG 1,000 ML IV SCH ×3 (05:22→23:45)
--- NOTE | 2019-07-17 06:15 | NUR ---
Patient frequently c/o headaches, nausea, and 2 episodes of emesis, having elevated B/P's, denies abdominal pain, headaches are 'the reason I'm sick..", after order received for compazine, and administered, patient resting, eyes closed, reports headache is better as well as nausea. B/p meds effective in lowering her pressure, see vitals documentation...Monitoring.
[2019-07-17 07:37] LABS: BASO % 0 % (0-3); EOS % 0 % (0-3); HEMATOCRIT 38.2 % (36.0-47.0); HEMOGLOBIN 12.9 g/dL (12.0-15.5); LYMPH # 1.4 x10^3/uL (1.0-4.8); LYMPH % 13 % (24-48); MEAN CORPUSCULAR HEMOGLOBIN 26 pg (25-35); MEAN CORPUSCULAR HGB CONC 34 g/dL (31-37); MEAN CORPUSCULAR VOLUME 76 fL (79-100); MONO # 0.5 x10^3/uL (0.0-1.1); MONO % 4 % (0-9); NEUT % 82 % (31-73); PLATELET COUNT 296 x10^3/uL (140-400); RED BLOOD COUNT 5.04 x10^6/uL (3.50-5.40); RED CELL DISTRIBUTION WIDTH 15.4 % (11.5-14.5)
--- NOTE | 2019-07-17 08:21 | PDOC ---
PROGRESS NOTES Chief Complaint Chief Complaint A/P Acute pancreatitis Distended gallbladder with mild gallbladder wall thickening. Dilated common duct and pancreatic duct. Small bubbles of gas possibly in duodenal diverticula. Multiple calcified and noncalcified uterine leiomyomas. HTN morbid obesity HEADACHE 07/16 NEW PLAN ADMIT BOWEL REST IV FLUID SUPPORT GI CONSULT GEN SURGERY CONSULT REVIEWED NPO abdominal sono History of Present Illness History of Present Illness Ms Galeano is a 59 yo F w/ PMHx obesity, HTN admitted through ED for upper/mid abdominal pain began, gradually became more intense. Labs noted elevated lipase, AST, and ALT. MCV low at 75. On CT: fatty liver, distended GB w/ midl GB wall thickening, dilated CBD and PD, inflammation about duodenum and head of pancreas, fluid about the tail of pancreas, either small duodenal diverticulum or small bubble of free air behind head of pancreas, and uterine leiomyomas. Consulted GI and General Surgery 07/16 LIPASE 1284 ///RUQ PAIN BETTER. New headache Pain and nausea overnight with clear liquid diet. NPO for MRCP today. Tentative plan for lap trista. No SOB or CP. Vitals Vitals Vital Signs Date Time Temp Pulse Resp B/P (MAP) Pulse Ox O2 Delivery O2 Flow Rate FiO2 07/17/19 07:00 98.3 86 168/79 (108) 95 Room Air 98.3 07/17/19 03:48 20 Physical Exam General: Alert, Oriented X3, Cooperative, No acute distress Heart: Regular rate, Normal S1, Normal S2 Abdomen: Soft, Other (ND, NTTP on exam currently ) Extremities: No clubbing, No cyanosis Skin: No rashes, No breakdown Labs LABS Laboratory Tests Test 07/17/19 05:55 White Blood Count 11.0 x10^3/uL (4.0-11.0) Red Blood Count 5.04 x10^6/uL (3.50-5.40) Hemoglobin 12.9 g/dL (12.0-15.5) Hematocrit 38.2 % (36.0-47.0) Mean Corpuscular Volume 76 fL (79-100) Mean Corpuscular Hemoglobin 26 pg (25-35) Mean Corpuscular Hemoglobin Concent 34 g/dL (31-37) Red Cell Distribution Width 15.4 % (11.5-14.5) Platelet Count 296 x10^3/uL (140-400) Neutrophils (%) (Auto) 82 % (31-73) Lymphocytes (%) (Auto) 13 % (24-48) Monocytes (%) (Auto) 4 % (0-9) Eosinophils (%) (Auto) 0 % (0-3) Basophils (%) (Auto) 0 % (0-3) Neutrophils # (Auto) 9.0 x10^3/uL (1.8-7.7) Lymphocytes # (Auto) 1.4 x10^3/uL (1.0-4.8) Monocytes # (Auto) 0.5 x10^3/uL (0.0-1.1) Eosinophils # (Auto) 0.0 x10^3/uL (0.0-0.7) Basophils # (Auto) 0.0 x10^3/uL (0.0-0.2) Lipase 564 U/L (73-393) Assessment and Plan Assessmemt and Plan Problems Medical Problems: (1) Acute pancreatitis Status: Acute Comment Review of Relevant I have reviewed the following items vaughn (where applicable) has been applied. Labs Laboratory Tests Test 07/15/19 15:00 07/16/19 07:50 07/17/19 05:55 Iron Level 39 ug/dL (50-170) Total Iron Binding Capacity 276 ug/dL (250-450) Iron Saturation 14 % (15-34) Triglycerides Level 73 mg/dL (0-150) White Blood Count 10.0 x10^3/uL (4.0-11.0) 11.0 x10^3/uL (4.0-11.0) Red Blood Count 4.66 x10^6/uL (3.50-5.40) 5.04 x10^6/uL (3.50-5.40) Hemoglobin 11.9 g/dL (12.0-15.5) 12.9 g/dL (12.0-15.5) Hematocrit 35.6 % (36.0-47.0) 38.2 % (36.0-47.0) Mean Corpuscular Volume 76 fL (79-100) 76 fL (79-100) Mean Corpuscular Hemoglobin 26 pg (25-35) 26 pg (25-35) Mean Corpuscular Hemoglobin Concent 34 g/dL (31-37) 34 g/dL (31-37) Red Cell Distribution Width 15.4 % (11.5-14.5) 15.4 % (11.5-14.5) Platelet Count 283 x10^3/uL (140-400) 296 x10^3/uL (140-400) Neutrophils (%) (Auto) 70 % (31-73) 82 % (31-73) Lymphocytes (%) (Auto) 24 % (24-48) 13 % (24-48) Monocytes (%) (Auto) 5 % (0-9) 4 % (0-9) Eosinophils (%) (Auto) 1 % (0-3) 0 % (0-3) Basophils (%) (Auto) 1 % (0-3) 0 % (0-3) Neutrophils # (Auto) 7.0 x10^3/uL (1.8-7.7) 9.0 x10^3/uL (1.8-7.7) Lymphocytes # (Auto) 2.3 x10^3/uL (1.0-4.8) 1.4 x10^3/uL (1.0-4.8) Monocytes # (Auto) 0.5 x10^3/uL (0.0-1.1) 0.5 x10^3/uL (0.0-1.1) Eosinophils # (Auto) 0.1 x10^3/uL (0.0-0.7) 0.0 x10^3/uL (0.0-0.7) Basophils # (Auto) 0.1 x10^3/uL (0.0-0.2) 0.0 x10^3/uL (0.0-0.2) Sodium Level 140 mmol/L (136-145) Potassium Level 3.5 mmol/L (3.5-5.1) Chloride Level 105 mmol/L (98-107) Carbon Dioxide Level 24 mmol/L (21-32) Anion Gap 11 (6-14) Blood Urea Nitrogen 8 mg/dL (7-20) Creatinine 0.7 mg/dL (0.6-1.0) Estimated GFR (Cockcroft-Gault) 103.6 BUN/Creatinine Ratio 11 (6-20) Glucose Level 72 mg/dL (70-99) Calcium Level 8.4 mg/dL (8.5-10.1) Total Bilirubin 0.8 mg/dL (0.2-1.0) Aspartate Amino Transf (AST/SGOT) 69 U/L (15-37) Alanine Aminotransferase (ALT/SGPT) 168 U/L (14-59) Alkaline Phosphatase 77 U/L (46-116) Total Protein 6.9 g/dL (6.4-8.2) Albumin 3.5 g/dL (3.4-5.0) Albumin/Globulin Ratio 1.0 (1.0-1.7) Lipase 1284 U/L (73-393) 564 U/L (73-393) Laboratory Tests Test 07/17/19 05:55 White Blood Count 11.0 x10^3/uL (4.0-11.0) Red Blood Count 5.04 x10^6/uL (3.50-5.40) Hemoglobin 12.9 g/dL (12.0-15.5) Hematocrit 38.2 % (36.0-47.0) Mean Corpuscular Volume 76 fL (79-100) Mean Corpuscular Hemoglobin 26 pg (25-35) Mean Corpuscular Hemoglobin Concent 34 g/dL (31-37) Red Cell Distribution Width 15.4 % (11.5-14.5) Platelet Count 296 x10^3/uL (140-400) Neutrophils (%) (Auto) 82 % (31-73) Lymphocytes (%) (Auto) 13 % (24-48) Monocytes (%) (Auto) 4 % (0-9) Eosinophils (%) (Auto) 0 % (0-3) Basophils (%) (Auto) 0 % (0-3) Neutrophils # (Auto) 9.0 x10^3/uL (1.8-7.7) Lymphocytes # (Auto) 1.4 x10^3/uL (1.0-4.8) Monocytes # (Auto) 0.5 x10^3/uL (0.0-1.1) Eosinophils # (Auto) 0.0 x10^3/uL (0.0-0.7) Basophils # (Auto) 0.0 x10^3/uL (0.0-0.2) Lipase 564 U/L (73-393) Medications Current Medications Fentanyl Citrate (Fentanyl 2ml Vial) 25 mcg PRN Q15MIN PRN IV PAIN GREATER THAN 3/10 Last administered on 07/15/19at 03:15; Start 07/14/19 at 23:30; Stop 07/15/19 at 23:29; Status DC Sodium Chloride 1,000 ml @ 1,000 mls/hr Q1H IV Last administered on 07/15/19at 00:04; Start 07/15/19 at 00:00; Stop 07/15/19 at 00:59; Status DC Ondansetron HCl (Zofran) 4 mg 1X ONCE IV Last administered on 07/15/19at 00:04; Start 07/15/19 at 00:00; Stop 07/15/19 at 00:01; Status DC Iohexol (Omnipaque 300 Mg/ml) 75 ml 1X ONCE IV Last administered on 07/15/19at 00:54; Start 07/15/19 at 01:00; Stop 07/15/19 at 01:01; Status DC Info (CONTRAST GIVEN -- Rx MONITORING) 1 each PRN DAILY PRN MC SEE COMMENTS; Start 07/15/19 at 00:45; Stop 07/17/19 at 00:44; Status DC Piperacillin Sod/ Tazobactam Sod 3.375 gm/Sodium Chloride 50 ml @ 100 mls/hr 1X ONCE IV Last administered on 07/15/19at 02:30; Start 07/15/19 at 03:00; Stop 07/15/19 at 03:29; Status DC Ondansetron HCl (Zofran) 4 mg PRN Q8HRS PRN IV NAUSEA/VOMITING 1ST CHOICE Last administered on 07/15/19at 17:26; Start 07/15/19 at 04:00; Stop 07/16/19 at 03:59; Status DC Fentanyl Citrate (Fentanyl 2ml Vial) 50 mcg PRN Q1HR PRN IV SEVERE PAIN 7-10 Last administered on 07/16/19at 00:28; Start 07/15/19 at 04:00; Stop 07/16/19 at 03:59; Status DC Sodium Chloride 1,000 ml @ 125 mls/hr Q8H IV Last administered on 07/15/19at 23:55; Start 07/15/19 at 04:00; Stop 07/16/19 at 03:59; Status DC Hydralazine HCl (Apresoline Inj) 10 mg PRN Q4HRS PRN IVP ELEVATED BP, SEE COMMENTS Last administered on 07/17/19at 02:13; Start 07/15/19 at 13:00 Famotidine (Pepcid Vial) 20 mg QHS IVP Last administered on 07/16/19at 21:33; Start 07/15/19 at 21:00 Fentanyl Citrate (Fentanyl 2ml Vial) 50 mcg PRN Q2HR PRN IVP SEVERE PAIN Last administered on 07/17/19at 03:48; Start 07/16/19 at 07:45 Fentanyl Citrate (Fentanyl 2ml Vial) 25 mcg PRN Q2HR PRN IVP MODERATE PAIN Last administered on 07/16/19at 10:34; Start 07/16/19 at 07:45 Ondansetron HCl (Zofran) 4 mg PRN Q8HRS PRN IVP NAUSEA/VOMITING Last administered on 07/17/19at 03:49; Start 07/16/19 at 07:45 Sodium Chloride 1,000 ml @ 125 mls/hr Q8H IV Last administered on 07/17/19at 05:22; Start 07/16/19 at 07:45 Losartan Potassium (Cozaar) 100 mg DAILY PO Last administered on 07/16/19at 23:56; Start 07/16/19 at 23:55 Prochlorperazine Edisylate (Compazine) 10 mg PRN Q6HRS PRN IV NAUSEA/VOMITING Last administered on 07/17/19at 05:14; Start 07/17/19 at 04:30 Active Scripts Active Reported Simvastatin 10 Mg Tablet 10 Mg PO HS Losartan Potassium 100 Mg Tablet 100 Mg PO DAILY Vitals/I & O Vital Sign - Last 24 Hours 07/16/19 07/16/19 07/16/19 07/16/19 09:35 10:34 11:00 11:15 Temp 98.2 98.2 Pulse 82 89 Resp 20 19 B/P (MAP) 177/78 179/83 (115) Pulse Ox 94 95 93 O2 Delivery Room Air Room Air Room Air 07/16/19 07/16/19 07/16/19 07/16/19 15:00 19:00 20:00 20:22 Temp 97.6 97.6 Pulse 82 69 69 Resp 18 B/P (MAP) 184/84 (117) 178/93 (121) 178/93 Pulse Ox 93 97 O2 Delivery Room Air Room Air Room Air 07/16/19 07/16/19 07/16/19 07/16/19 22:31 23:01 23:02 23:56 Temp 98.3 98.3 Pulse 80 80 Resp 18 20 18 B/P (MAP) 197/92 (127) 197/92 Pulse Ox 93 O2 Delivery Room Air Room Air Room Air 07/17/19 07/17/19 07/17/19 07/17/19 02:11 02:13 02:16 02:40 Temp 98.3 98.3 Pulse 78 78 81 Resp 20 20 B/P (MAP) 176/88 176/88 (117) 162/71 (101) Pulse Ox 96 O2 Delivery Room Air Room Air 07/17/19 07/17/19 07/17/19 07/17/19 02:41 03:40 03:48 04:05 Pulse 87 85 Resp 18 20 B/P (MAP) 182/81 (114) 153/79 (103) O2 Delivery Room Air Room Air 07/17/19 07:00 Temp 98.3 98.3 Pulse 86 B/P (MAP) 168/79 (108) Pulse Ox 95 O2 Delivery Room Air Intake and Output 07/16/19 07/16/19 07/17/19 15:00 23:00 07:00 Intake Total 2200 ml Balance 2200 ml Hemodynamically unstable?: No Is patient in severe pain?: Yes Is NPO status required?: Yes ABHI ALEXANDER MD Jul 17, 2019 08:21
[2019-07-17] MEDS: LOSARTAN POTASSIUM 50 MG TABLET. PO SCH (10:06)
--- NOTE | 2019-07-17 11:23 | PDOC ---
Subjective: Subjective: Pain is better overall. Tolerated some clear liquids. Wants to know who to talk to about sick leave. Objective: Objective: Records from [facility] include laryngoscopy (NOT EGD). Vital Signs: Vital Signs Date Time Temp Pulse Resp B/P (MAP) Pulse Ox O2 Delivery O2 Flow Rate FiO2 07/17/19 10:06 86 168/79 07/17/19 07:00 98.3 95 Room Air 98.3 07/17/19 03:48 20 Labs: Laboratory Tests Test 07/17/19 05:55 White Blood Count 11.0 x10^3/uL Red Blood Count 5.04 x10^6/uL Hemoglobin 12.9 g/dL Hematocrit 38.2 % Mean Corpuscular Volume 76 fL Mean Corpuscular Hemoglobin 26 pg Mean Corpuscular Hemoglobin Concent 34 g/dL Red Cell Distribution Width 15.4 % Platelet Count 296 x10^3/uL Neutrophils (%) (Auto) 82 % Lymphocytes (%) (Auto) 13 % Monocytes (%) (Auto) 4 % Eosinophils (%) (Auto) 0 % Basophils (%) (Auto) 0 % Neutrophils # (Auto) 9.0 x10^3/uL Lymphocytes # (Auto) 1.4 x10^3/uL Monocytes # (Auto) 0.5 x10^3/uL Eosinophils # (Auto) 0.0 x10^3/uL Basophils # (Auto) 0.0 x10^3/uL Lipase 564 U/L Imaging: MRCP 07/17 pending PE: GEN: NAD, was asleep LUNGS: CTAB HEART: RRR ABD: quiet, some distention, less epigastric discomfort NEURO/PSYCH: A & O 3 A/P: Pancreatitis - unclear etiology ?duodenal diverticulum Iron deficiency Uterine leiomyomas, HTN, ARIAS -- Await MRCP. Doesn't seem interested in advancing diet beyond clears. Hemodynamically unstable?: No Is patient in severe pain?: Yes Is NPO status required?: No DIANE GONZALES Jul 17, 2019 11:23
--- NOTE | 2019-07-17 11:50 | RAD ---
Examination: MRCP WO CONTRAST History: Pancreatitis Comparison/Correlation: 07/15/2019 CT abdomen and pelvis with contrast, abdominal ultrasound exam, an hepatobiliary scan Findings: Multisequence, multiplanar images of the abdomen were obtained without contrast according to MRCP protocol. Maximum intensity projection images were provided. Thick slab MRCP images were provided. Diffuse fatty infiltration of liver is present. Mild hepatomegaly seen. Spleen is unremarkable. There is no intrahepatic biliary dilatation. Common duct diameter of up to 1 cm noted. The common hepatic duct at its proximal aspect appears relatively narrow but this is most likely artifactual in nature due to to crossing hepatic arterial vasculature. No mass lesion or other suspicious associated finding is identified at this site. The main pancreatic ductal diameter is 0.4 cm. No pancreatic divisum. Minimal edema about the distal pancreatic tail noted. Mild wall thickening of the gallbladder is present. No cholelithiasis. Impression: Mild circumferential gallbladder wall thickening with edematous appearance. Correlate for possibility of cholecystitis. No cholelithiasis or other evidence of calculus involvement. Edema about the distal pancreas. Slight pancreatic ductal distention diffusely. Findings which correspond with a pancreatitis in the appropriate clinical setting. No collection. No mass lesion involving the pancreas on this noncontrast exam. Hepatomegaly. Fatty infiltration of the liver. Electronically signed by: Ben Dave MD (07/17/2019 11:47 AM) [facility]
--- NOTE | 2019-07-17 12:41 | PDOC ---
PROGRESS NOTES Subjective Subjective Pt with improved abd pain and reports ARIAS has gone away Objective Objective Vital Signs Date Time Temp Pulse Resp B/P (MAP) Pulse Ox O2 Delivery O2 Flow Rate FiO2 07/17/19 11:49 86 202/98 07/17/19 11:00 98.1 93 Room Air 98.1 07/17/19 03:48 20 Intake and Output 07/17/19 07:00 Intake Total 2200 ml Balance 2200 ml Intake Oral 1200 ml IV Total 1000 ml # Voids 2 Physical Exam Physical Exam CTAB RRR S/NT/ND no C/C/E Assessment Assessment Problems Medical Problems: (1) Acute pancreatitis Status: Acute Assessment: 59y with acute pancreatitis Plan: 1.) Pelvic pain improved 2.) Uterine leiomyomas no intervention necessary at this time 3.) Menopause symptoms mild 4.) Anemia Hgb 11.9 5.) H/o endometriosis and dysmenorrhea no issues with either since menopause 6.) Acute pancreatitis management per GI and surgery 7.) HTN management per hospitalist Comment Review of Relevant I have reviewed the following items vaughn (where applicable) has been applied. Labs Laboratory Tests Test 07/15/19 15:00 07/16/19 07:50 07/17/19 05:55 Iron Level 39 ug/dL (50-170) Total Iron Binding Capacity 276 ug/dL (250-450) Iron Saturation 14 % (15-34) Triglycerides Level 73 mg/dL (0-150) White Blood Count 10.0 x10^3/uL (4.0-11.0) 11.0 x10^3/uL (4.0-11.0) Red Blood Count 4.66 x10^6/uL (3.50-5.40) 5.04 x10^6/uL (3.50-5.40) Hemoglobin 11.9 g/dL (12.0-15.5) 12.9 g/dL (12.0-15.5) Hematocrit 35.6 % (36.0-47.0) 38.2 % (36.0-47.0) Mean Corpuscular Volume 76 fL (79-100) 76 fL (79-100) Mean Corpuscular Hemoglobin 26 pg (25-35) 26 pg (25-35) Mean Corpuscular Hemoglobin Concent 34 g/dL (31-37) 34 g/dL (31-37) Red Cell Distribution Width 15.4 % (11.5-14.5) 15.4 % (11.5-14.5) Platelet Count 283 x10^3/uL (140-400) 296 x10^3/uL (140-400) Neutrophils (%) (Auto) 70 % (31-73) 82 % (31-73) Lymphocytes (%) (Auto) 24 % (24-48) 13 % (24-48) Monocytes (%) (Auto) 5 % (0-9) 4 % (0-9) Eosinophils (%) (Auto) 1 % (0-3) 0 % (0-3) Basophils (%) (Auto) 1 % (0-3) 0 % (0-3) Neutrophils # (Auto) 7.0 x10^3/uL (1.8-7.7) 9.0 x10^3/uL (1.8-7.7) Lymphocytes # (Auto) 2.3 x10^3/uL (1.0-4.8) 1.4 x10^3/uL (1.0-4.8) Monocytes # (Auto) 0.5 x10^3/uL (0.0-1.1) 0.5 x10^3/uL (0.0-1.1) Eosinophils # (Auto) 0.1 x10^3/uL (0.0-0.7) 0.0 x10^3/uL (0.0-0.7) Basophils # (Auto) 0.1 x10^3/uL (0.0-0.2) 0.0 x10^3/uL (0.0-0.2) Sodium Level 140 mmol/L (136-145) Potassium Level 3.5 mmol/L (3.5-5.1) Chloride Level 105 mmol/L (98-107) Carbon Dioxide Level 24 mmol/L (21-32) Anion Gap 11 (6-14) Blood Urea Nitrogen 8 mg/dL (7-20) Creatinine 0.7 mg/dL (0.6-1.0) Estimated GFR (Cockcroft-Gault) 103.6 BUN/Creatinine Ratio 11 (6-20) Glucose Level 72 mg/dL (70-99) Calcium Level 8.4 mg/dL (8.5-10.1) Total Bilirubin 0.8 mg/dL (0.2-1.0) Aspartate Amino Transf (AST/SGOT) 69 U/L (15-37) Alanine Aminotransferase (ALT/SGPT) 168 U/L (14-59) Alkaline Phosphatase 77 U/L (46-116) Total Protein 6.9 g/dL (6.4-8.2) Albumin 3.5 g/dL (3.4-5.0) Albumin/Globulin Ratio 1.0 (1.0-1.7) Lipase 1284 U/L (73-393) 564 U/L (73-393) Laboratory Tests Test 07/17/19 05:55 White Blood Count 11.0 x10^3/uL (4.0-11.0) Red Blood Count 5.04 x10^6/uL (3.50-5.40) Hemoglobin 12.9 g/dL (12.0-15.5) Hematocrit 38.2 % (36.0-47.0) Mean Corpuscular Volume 76 fL (79-100) Mean Corpuscular Hemoglobin 26 pg (25-35) Mean Corpuscular Hemoglobin Concent 34 g/dL (31-37) Red Cell Distribution Width 15.4 % (11.5-14.5) Platelet Count 296 x10^3/uL (140-400) Neutrophils (%) (Auto) 82 % (31-73) Lymphocytes (%) (Auto) 13 % (24-48) Monocytes (%) (Auto) 4 % (0-9) Eosinophils (%) (Auto) 0 % (0-3) Basophils (%) (Auto) 0 % (0-3) Neutrophils # (Auto) 9.0 x10^3/uL (1.8-7.7) Lymphocytes # (Auto) 1.4 x10^3/uL (1.0-4.8) Monocytes # (Auto) 0.5 x10^3/uL (0.0-1.1) Eosinophils # (Auto) 0.0 x10^3/uL (0.0-0.7) Basophils # (Auto) 0.0 x10^3/uL (0.0-0.2) Lipase 564 U/L (73-393) Medications Current Medications Fentanyl Citrate (Fentanyl 2ml Vial) 25 mcg PRN Q15MIN PRN IV PAIN GREATER THAN 3/10 Last administered on 07/15/19at 03:15; Start 07/14/19 at 23:30; Stop 07/15/19 at 23:29; Status DC Sodium Chloride 1,000 ml @ 1,000 mls/hr Q1H IV Last administered on 07/15/19at 00:04; Start 07/15/19 at 00:00; Stop 07/15/19 at 00:59; Status DC Ondansetron HCl (Zofran) 4 mg 1X ONCE IV Last administered on 07/15/19at 00:04; Start 07/15/19 at 00:00; Stop 07/15/19 at 00:01; Status DC Iohexol (Omnipaque 300 Mg/ml) 75 ml 1X ONCE IV Last administered on 07/15/19at 00:54; Start 07/15/19 at 01:00; Stop 07/15/19 at 01:01; Status DC Info (CONTRAST GIVEN -- Rx MONITORING) 1 each PRN DAILY PRN MC SEE COMMENTS; Start 07/15/19 at 00:45; Stop 07/17/19 at 00:44; Status DC Piperacillin Sod/ Tazobactam Sod 3.375 gm/Sodium Chloride 50 ml @ 100 mls/hr 1X ONCE IV Last administered on 07/15/19at 02:30; Start 07/15/19 at 03:00; Stop 07/15/19 at 03:29; Status DC Ondansetron HCl (Zofran) 4 mg PRN Q8HRS PRN IV NAUSEA/VOMITING 1ST CHOICE Last administered on 07/15/19at 17:26; Start 07/15/19 at 04:00; Stop 07/16/19 at 03:59; Status DC Fentanyl Citrate (Fentanyl 2ml Vial) 50 mcg PRN Q1HR PRN IV SEVERE PAIN 7-10 Last administered on 07/16/19at 00:28; Start 07/15/19 at 04:00; Stop 07/16/19 at 03:59; Status DC Sodium Chloride 1,000 ml @ 125 mls/hr Q8H IV Last administered on 07/15/19at 23:55; Start 07/15/19 at 04:00; Stop 07/16/19 at 03:59; Status DC Hydralazine HCl (Apresoline Inj) 10 mg PRN Q4HRS PRN IVP ELEVATED BP, SEE COMMENTS Last administered on 07/17/19at 11:49; Start 07/15/19 at 13:00 Famotidine (Pepcid Vial) 20 mg QHS IVP Last administered on 07/16/19at 21:33; Start 07/15/19 at 21:00 Fentanyl Citrate (Fentanyl 2ml Vial) 50 mcg PRN Q2HR PRN IVP SEVERE PAIN Last administered on 07/17/19at 03:48; Start 07/16/19 at 07:45 Fentanyl Citrate (Fentanyl 2ml Vial) 25 mcg PRN Q2HR PRN IVP MODERATE PAIN Last administered on 07/16/19at 10:34; Start 07/16/19 at 07:45 Ondansetron HCl (Zofran) 4 mg PRN Q8HRS PRN IVP NAUSEA/VOMITING Last administered on 07/17/19at 03:49; Start 07/16/19 at 07:45 Sodium Chloride 1,000 ml @ 125 mls/hr Q8H IV Last administered on 07/17/19at 05:22; Start 07/16/19 at 07:45 Losartan Potassium (Cozaar) 100 mg DAILY PO Last administered on 07/17/19at 10:06; Start 07/16/19 at 23:55 Prochlorperazine Edisylate (Compazine) 10 mg PRN Q6HRS PRN IV NAUSEA/VOMITING Last administered on 07/17/19at 05:14; Start 07/17/19 at 04:30 Active Scripts Active Reported Simvastatin 10 Mg Tablet 10 Mg PO HS Losartan Potassium 100 Mg Tablet 100 Mg PO DAILY Vitals/I & O Vital Sign - Last 24 Hours 07/16/19 07/16/19 07/16/19 07/16/19 15:00 19:00 20:00 20:22 Temp 97.6 97.6 Pulse 82 69 69 Resp 18 B/P (MAP) 184/84 (117) 178/93 (121) 178/93 Pulse Ox 93 97 O2 Delivery Room Air Room Air Room Air 07/16/19 07/16/19 07/16/19 07/16/19 22:31 23:01 23:02 23:56 Temp 98.3 98.3 Pulse 80 80 Resp 18 20 18 B/P (MAP) 197/92 (127) 197/92 Pulse Ox 93 O2 Delivery Room Air Room Air Room Air 07/17/19 07/17/19 07/17/19 07/17/19 02:11 02:13 02:16 02:40 Temp 98.3 98.3 Pulse 78 78 81 Resp 20 20 B/P (MAP) 176/88 176/88 (117) 162/71 (101) Pulse Ox 96 O2 Delivery Room Air Room Air 07/17/19 07/17/19 07/17/19 07/17/19 02:41 03:40 03:48 04:05 Pulse 87 85 Resp 18 20 B/P (MAP) 182/81 (114) 153/79 (103) O2 Delivery Room Air Room Air 07/17/19 07/17/19 07/17/19 07/17/19 07:00 10:06 11:00 11:49 Temp 98.3 98.1 98.3 98.1 Pulse 86 86 86 86 B/P (MAP) 168/79 (108) 168/79 202/98 (132) 202/98 Pulse Ox 95 93 O2 Delivery Room Air Room Air Intake and Output 07/16/19 07/16/19 07/17/19 15:00 23:00 07:00 Intake Total 2200 ml Balance 2200 ml Hemodynamically unstable?: No Is patient in severe pain?: Yes Is NPO status required?: No YUNIER LANDIS MD Jul 17, 2019 12:41
--- NOTE | 2019-07-17 13:01 | PDOC ---
[employer] 07/17/19 1301: SURGICAL PROGRESS NOTE Subjective resting tired Vital Signs Vital Signs Date Time Temp Pulse Resp B/P (MAP) Pulse Ox O2 Delivery O2 Flow Rate FiO2 07/17/19 11:49 86 202/98 07/17/19 11:00 98.1 93 Room Air 98.1 07/17/19 03:48 20 I&O Intake and Output 07/17/19 07:00 Intake Total 2200 ml Balance 2200 ml Intake Oral 1200 ml IV Total 1000 ml # Voids 2 General: Alert, Cooperative Abdomen: Soft Labs Laboratory Tests Test 07/15/19 15:00 07/16/19 07:50 07/17/19 05:55 Iron Level 39 ug/dL (50-170) Total Iron Binding Capacity 276 ug/dL (250-450) Iron Saturation 14 % (15-34) Triglycerides Level 73 mg/dL (0-150) White Blood Count 10.0 x10^3/uL (4.0-11.0) 11.0 x10^3/uL (4.0-11.0) Red Blood Count 4.66 x10^6/uL (3.50-5.40) 5.04 x10^6/uL (3.50-5.40) Hemoglobin 11.9 g/dL (12.0-15.5) 12.9 g/dL (12.0-15.5) Hematocrit 35.6 % (36.0-47.0) 38.2 % (36.0-47.0) Mean Corpuscular Volume 76 fL (79-100) 76 fL (79-100) Mean Corpuscular Hemoglobin 26 pg (25-35) 26 pg (25-35) Mean Corpuscular Hemoglobin Concent 34 g/dL (31-37) 34 g/dL (31-37) Red Cell Distribution Width 15.4 % (11.5-14.5) 15.4 % (11.5-14.5) Platelet Count 283 x10^3/uL (140-400) 296 x10^3/uL (140-400) Neutrophils (%) (Auto) 70 % (31-73) 82 % (31-73) Lymphocytes (%) (Auto) 24 % (24-48) 13 % (24-48) Monocytes (%) (Auto) 5 % (0-9) 4 % (0-9) Eosinophils (%) (Auto) 1 % (0-3) 0 % (0-3) Basophils (%) (Auto) 1 % (0-3) 0 % (0-3) Neutrophils # (Auto) 7.0 x10^3/uL (1.8-7.7) 9.0 x10^3/uL (1.8-7.7) Lymphocytes # (Auto) 2.3 x10^3/uL (1.0-4.8) 1.4 x10^3/uL (1.0-4.8) Monocytes # (Auto) 0.5 x10^3/uL (0.0-1.1) 0.5 x10^3/uL (0.0-1.1) Eosinophils # (Auto) 0.1 x10^3/uL (0.0-0.7) 0.0 x10^3/uL (0.0-0.7) Basophils # (Auto) 0.1 x10^3/uL (0.0-0.2) 0.0 x10^3/uL (0.0-0.2) Sodium Level 140 mmol/L (136-145) Potassium Level 3.5 mmol/L (3.5-5.1) Chloride Level 105 mmol/L (98-107) Carbon Dioxide Level 24 mmol/L (21-32) Anion Gap 11 (6-14) Blood Urea Nitrogen 8 mg/dL (7-20) Creatinine 0.7 mg/dL (0.6-1.0) Estimated GFR (Cockcroft-Gault) 103.6 BUN/Creatinine Ratio 11 (6-20) Glucose Level 72 mg/dL (70-99) Calcium Level 8.4 mg/dL (8.5-10.1) Total Bilirubin 0.8 mg/dL (0.2-1.0) Aspartate Amino Transf (AST/SGOT) 69 U/L (15-37) Alanine Aminotransferase (ALT/SGPT) 168 U/L (14-59) Alkaline Phosphatase 77 U/L (46-116) Total Protein 6.9 g/dL (6.4-8.2) Albumin 3.5 g/dL (3.4-5.0) Albumin/Globulin Ratio 1.0 (1.0-1.7) Lipase 1284 U/L (73-393) 564 U/L (73-393) Laboratory Tests Test 07/17/19 05:55 White Blood Count 11.0 x10^3/uL (4.0-11.0) Red Blood Count 5.04 x10^6/uL (3.50-5.40) Hemoglobin 12.9 g/dL (12.0-15.5) Hematocrit 38.2 % (36.0-47.0) Mean Corpuscular Volume 76 fL (79-100) Mean Corpuscular Hemoglobin 26 pg (25-35) Mean Corpuscular Hemoglobin Concent 34 g/dL (31-37) Red Cell Distribution Width 15.4 % (11.5-14.5) Platelet Count 296 x10^3/uL (140-400) Neutrophils (%) (Auto) 82 % (31-73) Lymphocytes (%) (Auto) 13 % (24-48) Monocytes (%) (Auto) 4 % (0-9) Eosinophils (%) (Auto) 0 % (0-3) Basophils (%) (Auto) 0 % (0-3) Neutrophils # (Auto) 9.0 x10^3/uL (1.8-7.7) Lymphocytes # (Auto) 1.4 x10^3/uL (1.0-4.8) Monocytes # (Auto) 0.5 x10^3/uL (0.0-1.1) Eosinophils # (Auto) 0.0 x10^3/uL (0.0-0.7) Basophils # (Auto) 0.0 x10^3/uL (0.0-0.2) Lipase 564 U/L (73-393) Problem List Problems Medical Problems: (1) Acute pancreatitis Status: Acute Assessment/Plan MRCP noted will FU on GI recs DEE DEE YEH MD 07/17/193: SURGICAL PROGRESS NOTE Assessment/Plan Above noted BG EDMONDSON APRN Jul 17, 2019 13:01 DEE DEE YEH MD Jul 17, 2019 21:43
--- NOTE | 2019-07-17 15:31 | NUR ---
SW following. Discussed with RN, pt is from home with family. Pt NPO for an MRCP today. Possible lap trista on Saturday (07/20/2019). SW will continue to follow.
[2019-07-17] MEDS: FAMOTIDINE 20 MG/2 ML VIAL IVP SCH (21:27)
[2019-07-18 03:00] VITALS: BP 156/78
[2019-07-18 07:00] VITALS: BP 185/89
[2019-07-18] MEDS ORDERED: SIMETHICONE/SOD BICARB/CITRIC ACID PACKET. PO ONE (08:00)
[2019-07-18] MEDS ORDERED: BARIUM SULFATE 340 GM SUSPENSION. PO ONE (08:00)
[2019-07-18] MEDS ORDERED: BARIUM SULFATE 60% 355 ML SUSP PO ONE ×2 (08:00→11:00)
--- NOTE | 2019-07-18 09:18 | PDOC ---
PROGRESS NOTES Chief Complaint Chief Complaint A/P Acute pancreatitis Distended gallbladder with mild gallbladder wall thickening. Dilated common duct and pancreatic duct. Small bubbles of gas possibly in duodenal diverticula. Multiple calcified and noncalcified uterine leiomyomas. HTN morbid obesity HEADACHE 07/16 NEW PLAN ADMIT BOWEL REST IV FLUID SUPPORT GI CONSULT GEN SURGERY CONSULT REVIEWED NPO abdominal sono History of Present Illness History of Present Illness Ms Galeano is a 59 yo F w/ PMHx obesity, HTN admitted through ED for upper/mid abdominal pain began, gradually became more intense. Labs noted elevated lipase, AST, and ALT. MCV low at 75. On CT: fatty liver, distended GB w/ midl GB wall thickening, dilated CBD and PD, inflammation about duodenum and head of pancreas, fluid about the tail of pancreas, either small duodenal diverticulum or small bubble of free air behind head of pancreas, and uterine leiomyomas. Consulted GI and General Surgery 07/16 LIPASE 1284. RUQ PAIN BETTER. New headache 07/17: Pain and nausea overnight with clear liquid diet. NPO for MRCP today. Tentative plan for lap trista. No SOB or CP. Per GI - Cause not apparent on imaging, though microlithiasis or related to duodenal diverticula possible. Of the 2, biliary cause much more likely. Pancreatitis, improved. We have all urged patient to consider cholecystectomy. She really just wants to try to advance diet and go home. No CP or SOB. Vitals Vitals Vital Signs Date Time Temp Pulse Resp B/P (MAP) Pulse Ox O2 Delivery O2 Flow Rate FiO2 07/18/19 03:00 98.0 88 18 156/78 (104) 94 Room Air 98.0 Physical Exam General: Alert, Cooperative Heart: Regular rate, Normal S1, Normal S2 Abdomen: Soft Extremities: No clubbing, No cyanosis Skin: No rashes, No breakdown Assessment and Plan Assessmemt and Plan Problems Medical Problems: (1) Acute pancreatitis Status: Acute Comment Review of Relevant I have reviewed the following items vaughn (where applicable) has been applied. Labs Laboratory Tests Test 07/17/19 05:55 White Blood Count 11.0 x10^3/uL (4.0-11.0) Red Blood Count 5.04 x10^6/uL (3.50-5.40) Hemoglobin 12.9 g/dL (12.0-15.5) Hematocrit 38.2 % (36.0-47.0) Mean Corpuscular Volume 76 fL (79-100) Mean Corpuscular Hemoglobin 26 pg (25-35) Mean Corpuscular Hemoglobin Concent 34 g/dL (31-37) Red Cell Distribution Width 15.4 % (11.5-14.5) Platelet Count 296 x10^3/uL (140-400) Neutrophils (%) (Auto) 82 % (31-73) Lymphocytes (%) (Auto) 13 % (24-48) Monocytes (%) (Auto) 4 % (0-9) Eosinophils (%) (Auto) 0 % (0-3) Basophils (%) (Auto) 0 % (0-3) Neutrophils # (Auto) 9.0 x10^3/uL (1.8-7.7) Lymphocytes # (Auto) 1.4 x10^3/uL (1.0-4.8) Monocytes # (Auto) 0.5 x10^3/uL (0.0-1.1) Eosinophils # (Auto) 0.0 x10^3/uL (0.0-0.7) Basophils # (Auto) 0.0 x10^3/uL (0.0-0.2) Lipase 564 U/L (73-393) Medications Current Medications Fentanyl Citrate (Fentanyl 2ml Vial) 25 mcg PRN Q15MIN PRN IV PAIN GREATER THAN 3/10 Last administered on 07/15/19at 03:15; Start 07/14/19 at 23:30; Stop 07/15/19 at 23:29; Status DC Sodium Chloride 1,000 ml @ 1,000 mls/hr Q1H IV Last administered on 07/15/19at 00:04; Start 07/15/19 at 00:00; Stop 07/15/19 at 00:59; Status DC Ondansetron HCl (Zofran) 4 mg 1X ONCE IV Last administered on 07/15/19at 00:04; Start 07/15/19 at 00:00; Stop 07/15/19 at 00:01; Status DC Iohexol (Omnipaque 300 Mg/ml) 75 ml 1X ONCE IV Last administered on 07/15/19at 00:54; Start 07/15/19 at 01:00; Stop 07/15/19 at 01:01; Status DC Info (CONTRAST GIVEN -- Rx MONITORING) 1 each PRN DAILY PRN MC SEE COMMENTS; Start 07/15/19 at 00:45; Stop 07/17/19 at 00:44; Status DC Piperacillin Sod/ Tazobactam Sod 3.375 gm/Sodium Chloride 50 ml @ 100 mls/hr 1X ONCE IV Last administered on 07/15/19at 02:30; Start 07/15/19 at 03:00; Stop 07/15/19 at 03:29; Status DC Ondansetron HCl (Zofran) 4 mg PRN Q8HRS PRN IV NAUSEA/VOMITING 1ST CHOICE Last administered on 07/15/19at 17:26; Start 07/15/19 at 04:00; Stop 07/16/19 at 03:59 ; Status DC Fentanyl Citrate (Fentanyl 2ml Vial) 50 mcg PRN Q1HR PRN IV SEVERE PAIN 7-10 Last administered on 07/16/19at 00:28; Start 07/15/19 at 04:00; Stop 07/16/19 at 03:59; Status DC Sodium Chloride 1,000 ml @ 125 mls/hr Q8H IV Last administered on 07/15/19at 23:55; Start 07/15/19 at 04:00; Stop 07/16/19 at 03:59; Status DC Hydralazine HCl (Apresoline Inj) 10 mg PRN Q4HRS PRN IVP ELEVATED BP, SEE COMMENTS Last administered on 07/17/19at 21:32; Start 07/15/19 at 13:00 Famotidine (Pepcid Vial) 20 mg QHS IVP Last administered on 07/17/19at 21:27; Start 07/15/19 at 21:00 Fentanyl Citrate (Fentanyl 2ml Vial) 50 mcg PRN Q2HR PRN IVP SEVERE PAIN Last administered on 07/17/19at 21:27; Start 07/16/19 at 07:45 Fentanyl Citrate (Fentanyl 2ml Vial) 25 mcg PRN Q2HR PRN IVP MODERATE PAIN Last administered on 07/16/19at 10:34; Start 07/16/19 at 07:45 Ondansetron HCl (Zofran) 4 mg PRN Q8HRS PRN IVP NAUSEA/VOMITING 1ST CHOICE Last administered on 07/17/19at 03:49; Start 07/16/19 at 07:45 Sodium Chloride 1,000 ml @ 75 mls/hr [id number] IV Last administered on 07/17/19at 21:26; Start 07/16/19 at 07:45 Losartan Potassium (Cozaar) 100 mg DAILY PO Last administered on 07/17/19at 10:06; Start 07/16/19 at 23:55 Prochlorperazine Edisylate (Compazine) 10 mg PRN Q6HRS PRN IV NAUSEA/VOMITING 2ND CHOICE Last administered on 07/17/19at 05:14; Start 07/17/19 at 04:30 Barium Sulfate (E-Z-Hd) 340 gm 1X ONCE PO ; Start 07/18/19 at 08:00; Stop 07/18/19 at 08:01; Status DC Barium Sulfate (Liquid E-Z Paque) 355 ml 1X ONCE PO ; Start 07/18/19 at 08:00; Stop 07/18/19 at 08:01; Status DC Simethicone/ Sodium Bicarb/ Citric Ac (E-Z-Gas) 1 packet 1X ONCE PO ; Start at 08:00; Stop 07/18/19 at 08:01; Status DC Active Scripts Active Reported Simvastatin 10 Mg Tablet 10 Mg PO HS Losartan Potassium 100 Mg Tablet 100 Mg PO DAILY Vitals/I & O Vital Sign - Last 24 Hours 07/17/19 07/17/19 07/17/19 07/17/19 10:06 11:00 11:49 14:09 Temp 98.1 98.1 98.1 98.1 Pulse 86 86 86 97 Resp 20 B/P (MAP) 168/79 202/98 (132) 202/98 188/82 (117) Pulse Ox 93 94 O2 Delivery Room Air Room Air 07/17/19 07/17/19 07/17/19 07/17/19 19:00 20:00 21:27 21:32 Temp 98.2 98.2 Pulse 98 98 Resp 18 18 B/P (MAP) 193/90 (124) 193/90 Pulse Ox 95 95 O2 Delivery Room Air Room Air Room Air 07/17/19 07/17/19 07/18/19 21:57 23:00 03:00 Temp 98.0 98.0 98.0 98.0 Pulse 90 88 Resp 18 18 18 B/P (MAP) 159/72 (101) 156/78 (104) Pulse Ox 95 94 94 O2 Delivery Room Air Room Air Room Air Intake and Output 07/17/19 07/17/19 07/18/19 15:00 23:00 07:00 Intake Total 1120 ml Balance 1120 ml Hemodynamically unstable?: No Is patient in severe pain?: Yes Is NPO status required?: No ABHI ALEXANDER MD Jul 18, 2019 09:18
--- NOTE | 2019-07-18 10:38 | PDOC ---
SURGICAL PROGRESS NOTE Subjective Pt feels better, pain nearly resolved Vital Signs Vital Signs Date Time Temp Pulse Resp B/P (MAP) Pulse Ox O2 Delivery O2 Flow Rate FiO2 07/18/19 08:00 Room Air 07/18/19 03:00 98.0 88 18 156/78 (104) 94 98.0 I&O Intake and Output 07/18/19 07:00 Intake Total 1120 ml Balance 1120 ml Intake Oral 120 ml IV Total 1000 ml # Voids 3 General: Alert, Oriented X3, Cooperative, No acute distress Abdomen: Soft, No tenderness Labs Laboratory Tests Test 07/17/19 05:55 White Blood Count 11.0 x10^3/uL (4.0-11.0) Red Blood Count 5.04 x10^6/uL (3.50-5.40) Hemoglobin 12.9 g/dL (12.0-15.5) Hematocrit 38.2 % (36.0-47.0) Mean Corpuscular Volume 76 fL (79-100) Mean Corpuscular Hemoglobin 26 pg (25-35) Mean Corpuscular Hemoglobin Concent 34 g/dL (31-37) Red Cell Distribution Width 15.4 % (11.5-14.5) Platelet Count 296 x10^3/uL (140-400) Neutrophils (%) (Auto) 82 % (31-73) Lymphocytes (%) (Auto) 13 % (24-48) Monocytes (%) (Auto) 4 % (0-9) Eosinophils (%) (Auto) 0 % (0-3) Basophils (%) (Auto) 0 % (0-3) Neutrophils # (Auto) 9.0 x10^3/uL (1.8-7.7) Lymphocytes # (Auto) 1.4 x10^3/uL (1.0-4.8) Monocytes # (Auto) 0.5 x10^3/uL (0.0-1.1) Eosinophils # (Auto) 0.0 x10^3/uL (0.0-0.7) Basophils # (Auto) 0.0 x10^3/uL (0.0-0.2) Lipase 564 U/L (73-393) I have reviewed the following MRCP-c/w pancreatitis and cholecystitis Problem List Problems Medical Problems: (1) Acute pancreatitis Status: Acute Assessment/Plan Cont bowel rest and supportive care, appears to be improving tentatively plan cholecystectomy on 07/20 IVAN BRIZUELA MD Jul 18, 2019 10:38
[2019-07-18 11:00] VITALS: BP 181/87
[2019-07-18] MEDS: IV NORMAL SALINE 1000ML BAG 1,000 ML IV SCH ×2 (12:58→21:23)
[2019-07-18] MEDS: LOSARTAN POTASSIUM 50 MG TABLET. PO SCH (13:51)
--- NOTE | 2019-07-18 13:58 | RAD ---
Upper GI and small bowel follow-through exam History: Duodenal diverticulum, abdominal pain Comparison: July 15, 2019 CT exam Findings: Upper GI examination and small bowel follow-through was performed. [employer] radiograph demonstrates a nonobstructive bowel gas pattern. A few calcifications in the bilateral pelvis are likely phleboliths. Course and caliber of the esophagus are within normal limits, esophageal motility within normal limits. No hiatal hernia or esophageal stricture was identified. There is protuberance of contrast medial to the proximal descending duodenum apparently with folds coursing in this region believed to be a diverticulum. There is a larger focus of protuberance of contrast projecting superiorly from the transverse duodenum likely a larger diverticulum. Small bowel caliber is within normal limits, no significant flow-limiting stricture identified. Terminal ileum is considered within normal limits. Fluoroscopy time 3.2 minutes, 34 images Impression: 1. There are 2 foci of protuberance of contrast emanating from the duodenum as described, likely diverticula. Electronically signed by: Edgardo Carlton MD (07/18/2019 1:56 PM) [facility]
--- NOTE | 2019-07-18 13:58 | PDOC ---
G I PROGRESS NOTE Subjective No pain. Tolerating diet. Physical Exam Lungs clear. RRR Abdomen soft, not tender nor distended. Review of Relevant I have reviewed the following items vaughn (where applicable) has been applied. Labs Laboratory Tests Test 07/17/19 05:55 White Blood Count 11.0 x10^3/uL (4.0-11.0) Red Blood Count 5.04 x10^6/uL (3.50-5.40) Hemoglobin 12.9 g/dL (12.0-15.5) Hematocrit 38.2 % (36.0-47.0) Mean Corpuscular Volume 76 fL (79-100) Mean Corpuscular Hemoglobin 26 pg (25-35) Mean Corpuscular Hemoglobin Concent 34 g/dL (31-37) Red Cell Distribution Width 15.4 % (11.5-14.5) Platelet Count 296 x10^3/uL (140-400) Neutrophils (%) (Auto) 82 % (31-73) Lymphocytes (%) (Auto) 13 % (24-48) Monocytes (%) (Auto) 4 % (0-9) Eosinophils (%) (Auto) 0 % (0-3) Basophils (%) (Auto) 0 % (0-3) Neutrophils # (Auto) 9.0 x10^3/uL (1.8-7.7) Lymphocytes # (Auto) 1.4 x10^3/uL (1.0-4.8) Monocytes # (Auto) 0.5 x10^3/uL (0.0-1.1) Eosinophils # (Auto) 0.0 x10^3/uL (0.0-0.7) Basophils # (Auto) 0.0 x10^3/uL (0.0-0.2) Lipase 564 U/L (73-393) Vitals/I & O Vital Sign - Last 24 Hours 07/17/19 07/17/19 07/17/19 07/17/19 14:09 19:00 20:00 21:27 Temp 98.1 98.2 98.1 98.2 Pulse 97 98 Resp 20 18 18 B/P (MAP) 188/82 (117) 193/90 (124) Pulse Ox 94 95 95 O2 Delivery Room Air Room Air Room Air Room Air 1/07/17/19 07/17/19 07/18/19 21:32 21:57 23:00 03:00 Temp 98.0 98.0 98.0 98.0 Pulse 98 90 88 Resp 18 18 18 B/P (MAP) 193/90 159/72 (101) 156/78 (104) Pulse Ox 95 94 94 O2 Delivery Room Air Room Air Room Air 07/18/19 07/18/19 07/18/19 07:00 08:00 13:51 Temp 97.4 97.4 Pulse 79 89 Resp 16 B/P (MAP) 185/89 (121) 181/87 Pulse Ox 94 O2 Delivery Room Air Room Air Intake and Output 07/17/19 07/17/19 07/18/19 15:00 23:00 07:00 Intake Total 1120 ml Balance 1120 ml Images Report pending, but looks like has duodenal diverticula to me. Problem List Problems Medical Problems: (1) Acute pancreatitis Status: Acute Assessment Pancreatitis, improved. Cause not apparent on imaging, though microlithiasis or related to duodenal diverticula possible. Of the 2, biliary cause much more likely. Plan of Care Note Urged patient to consider cholecystectomy even though we cannot document stones. Explained potential for severe pancreatitis in the future if biliary cause and no trista. YUNIER MOON MD Jul 18, 2019 13:58
[2019-07-18 15:00] VITALS: BP 193/83
[2019-07-18 17:48] VITALS: BP 195/82
[2019-07-18] MEDS: hydrALAZINE 20 MG/ML VIAL. IVP PRN ×2 (17:52→22:08)
--- NOTE | 2019-07-18 17:57 | NUR ---
Called Dr. Lee post dinner for patient to determine if patient ready for discharge. Patient 's blood pressure reassessed and found to be 195/[address] Lee decided to keep patient overnight to monitor for changes and make determination on Saturday, 07/19 to see if she is ready for discharge at that time. Will continue to monitor for changes.
[2019-07-18] MEDS: FAMOTIDINE 20 MG/2 ML VIAL IVP SCH (20:53)
[2019-07-18 22:09] VITALS: BP 170/86
[2019-07-19] MEDS ORDERED: ACETAMINOPHEN 325 MG TABLET. PO PRN (02:30)
[2019-07-19 03:00] VITALS: BP 167/81
[2019-07-19 07:00] VITALS: BP 165/82
--- NOTE | 2019-07-19 08:26 | PDOC ---
PROGRESS NOTES Chief Complaint Chief Complaint A/P Acute pancreatitis Distended gallbladder with mild gallbladder wall thickening. Dilated common duct and pancreatic duct. Small bubbles of gas possibly in duodenal diverticula. Multiple calcified and noncalcified uterine leiomyomas. HTN morbid obesity HEADACHE 07/16 NEW PLAN ADMIT BOWEL REST IV FLUID SUPPORT GI CONSULT GEN SURGERY CONSULT REVIEWED NPO abdominal sono History of Present Illness History of Present Illness Ms Galeano is a 59 yo F w/ PMHx obesity, HTN admitted through ED for upper/mid abdominal pain began, gradually became more intense. Labs noted elevated lipase, AST, and ALT. MCV low at 75. On CT: fatty liver, distended GB w/ midl GB wall thickening, dilated CBD and PD, inflammation about duodenum and head of pancreas, fluid about the tail of pancreas, either small duodenal diverticulum or small bubble of free air behind head of pancreas, and uterine leiomyomas. Consulted GI and General Surgery 07/16 LIPASE 1284. RUQ PAIN BETTER. New headache 07/17: Pain and nausea overnight with clear liquid diet. NPO for MRCP today. Tentative plan for lap trista. No SOB or CP. Per GI - Cause not apparent on imaging, though microlithiasis or related to duodenal diverticula possible. Of the 2, biliary cause much more likely. 07/18: Pancreatitis, improved. We have all urged patient to consider cholecystectomy. She really just wants to try to advance diet and go home. No CP or SOB. Overnight had "funny feeling" with dinner. Lipase is a bit up today. She does not c/o pain. She wishes to go home, states she won't have time to follow up outside the hospital. Vitals Vitals Vital Signs Date Time Temp Pulse Resp B/P (MAP) Pulse Ox O2 Delivery O2 Flow Rate FiO2 07/19/19 07:00 98.0 68 16 165/82 (109) 95 Room Air 98.0 Physical Exam General: Alert, Oriented X3, Cooperative, No acute distress Heart: Regular rate, Normal S1, Normal S2 Lungs: Clear Abdomen: Soft, No tenderness Extremities: No clubbing, No cyanosis Skin: No rashes, No breakdown Assessment and Plan Assessmemt and Plan Problems Medical Problems: (1) Acute pancreatitis Status: Acute Comment Review of Relevant I have reviewed the following items vaughn (where applicable) has been applied. Medications Current Medications Fentanyl Citrate (Fentanyl 2ml Vial) 25 mcg PRN Q15MIN PRN IV PAIN GREATER THAN 3/10 Last administered on 07/15/19at 03:15; Start 07/14/19 at 23:30; Stop 07/15/19 at 23:29; Status DC Sodium Chloride 1,000 ml @ 1,000 mls/hr Q1H IV Last administered on 07/15/19at 00:04; Start 07/15/19 at 00:00; Stop 07/15/19 at 00:59; Status DC Ondansetron HCl (Zofran) 4 mg 1X ONCE IV Last administered on 07/15/19at 00:04; Start 07/15/19 at 00:00; Stop 07/15/19 at 00:01; Status DC Iohexol (Omnipaque 300 Mg/ml) 75 ml 1X ONCE IV Last administered on 07/15/19at 00:54; Start 07/15/19 at 01:00; Stop 07/15/19 at 01:01; Status DC Info (CONTRAST GIVEN -- Rx MONITORING) 1 each PRN DAILY PRN MC SEE COMMENTS; Start 07/15/19 at 00:45; Stop 07/17/19 at 00:44; Status DC Piperacillin Sod/ Tazobactam Sod 3.375 gm/Sodium Chloride 50 ml @ 100 mls/hr 1X ONCE IV Last administered on 07/15/19at 02:30; Start 07/15/19 at 03:00; Stop 07/15/19 at 03:29; Status DC Ondansetron HCl (Zofran) 4 mg PRN Q8HRS PRN IV NAUSEA/VOMITING 1ST CHOICE Last administered on 07/15/19at 17:26; Start 07/15/19 at 04:00; Stop 07/16/19 at 03:59; Status DC Fentanyl Citrate (Fentanyl 2ml Vial) 50 mcg PRN Q1HR PRN IV SEVERE PAIN 7-10 Last administered on 07/16/19at 00:28; Start 07/15/19 at 04:00; Stop 07/16/19 at 03:59; Status DC Sodium Chloride 1,000 ml @ 125 mls/hr Q8H IV Last administered on 07/15/19at 23:55; Start 07/15/19 at 04:00; Stop 07/16/19 at 03:59; Status DC Hydralazine HCl (Apresoline Inj) 10 mg PRN Q4HRS PRN IVP ELEVATED BP, SEE COMMENTS Last administered on 07/18/19at 22:08; Start 07/15/19 at 13:00 Famotidine (Pepcid Vial) 20 mg QHS IVP Last administered on 07/18/19at 20:53; Start 07/15/19 at 21:00 Fentanyl Citrate (Fentanyl 2ml Vial) 50 mcg PRN Q2HR PRN IVP SEVERE PAIN Last administered on 07/17/19at 21:27; Start 07/16/19 at 07:45 Fentanyl Citrate (Fentanyl 2ml Vial) 25 mcg PRN Q2HR PRN IVP MODERATE PAIN Last administered on 07/16/19at 10:34; Start 07/16/19 at 07:45 Ondansetron HCl (Zofran) 4 mg PRN Q8HRS PRN IVP NAUSEA/VOMITING 1ST CHOICE Last administered on 07/17/19at 03:49; Start 07/16/19 at 07:45 Sodium Chloride 1,000 ml @ 75 mls/hr [id number] IV Last administered on 07/17/19at 21:26; Start 07/16/19 at 07:45 Losartan Potassium (Cozaar) 100 mg DAILY PO Last administered on 07/18/19at 13:51; Start 07/16/19 at 23:55 Prochlorperazine Edisylate (Compazine) 10 mg PRN Q6HRS PRN IV NAUSEA/VOMITING 2ND CHOICE Last administered on 07/17/19at 05:14; Start 07/17/19 at 04:30 Barium Sulfate (E-Z-Hd) 340 gm 1X ONCE PO ; Start 07/18/19 at 08:00; Stop 07/18/19 at 08:01; Status DC Barium Sulfate (Liquid E-Z Paque) 355 ml 1X ONCE PO Last administered on 07/18/19at 08:00; Start 07/18/19 at 08:00; Stop 07/18/19 at 08:01; Status DC Simethicone/ Sodium Bicarb/ Citric Ac (E-Z-Gas) 1 packet 1X ONCE PO Last administered on 07/18/19at 08:00; Start 07/18/19 at 08:00; Stop 07/18/19 at 08:01; Status DC Barium Sulfate (Liquid E-Z Paque) 355 ml 1X ONCE PO Last administered on 07/18/19at 10:42; Start 07/18/19 at 11:00; Stop 07/18/19 at 11:01; Status DC Acetaminophen (Tylenol) 650 mg PRN Q6HRS PRN PO PAIN Last administered on 07/19/19at 02:49; Start 07/19/19 at 02:30 Active Scripts Active Reported Simvastatin 10 Mg Tablet 10 Mg PO HS Losartan Potassium 100 Mg Tablet 100 Mg PO DAILY Vitals/I & O Vital Sign - Last 24 Hours 07/18/19 07/18/19 07/18/19 07/18/19 11:00 13:51 15:00 17:48 Temp 97.4 97.4 97.4 97.4 Pulse 89 89 79 90 Resp 16 16 B/P (MAP) 181/87 (118) 181/87 193/83 (119) 195/82 (119) Pulse Ox 96 94 O2 Delivery Room Air Room Air 07/18/19 07/18/19 07/18/19 07/18/19 17:52 19:55 22:08 22:09 Temp 97.8 97.8 Pulse 90 75 75 Resp 18 B/P (MAP) 195/82 170/86 170/86 (114) Pulse Ox 95 O2 Delivery Room Air Room Air 07/19/19 07/19/19 03:00 07:00 Temp 97.7 98.0 97.7 98.0 Pulse 74 68 Resp 16 16 B/P (MAP) 167/81 (109) 165/82 (109) Pulse Ox 94 95 O2 Delivery Room Air Room Air Intake and Output 07/18/19 07/18/19 07/19/19 15:00 23:00 07:00 Intake Total 120 ml 180 ml Balance 120 ml 180 ml Hemodynamically unstable?: No Is patient in severe pain?: Yes Is NPO status required?: No ABHI ALEXANDER MD Jul 19, 2019 08:26
[2019-07-19] MEDS: LOSARTAN POTASSIUM 50 MG TABLET. PO SCH (08:35)
[2019-07-19 09:57] LABS: ALBUMIN/GLOBULIN RATIO 1.1 (1.0-1.7); CALCIUM 9.5 mg/dL (8.5-10.1); CREATININE 0.9 mg/dL (0.6-1.0); GFR 77.5; POTASSIUM 3.2 mmol/L (3.5-5.1); TOTAL BILIRUBIN 0.6 mg/dL (0.2-1.0); TOTAL PROTEIN 7.8 g/dL (6.4-8.2)
[2019-07-19 11:00] VITALS: BP 155/71
--- NOTE | 2019-07-19 13:36 | PDOC ---
G I PROGRESS NOTE Subjective Tolerating diet. Denies pain. Physical Exam Lungs clear. RRR Abdomen soft, not tender. Review of Relevant I have reviewed the following items vaughn (where applicable) has been applied. Labs Laboratory Tests Test 07/19/19 09:00 Sodium Level 138 mmol/L (136-145) Potassium Level 3.2 mmol/L (3.5-5.1) Chloride Level 100 mmol/L (98-107) Carbon Dioxide Level 27 mmol/L (21-32) Anion Gap 11 (6-14) Blood Urea Nitrogen 11 mg/dL (7-20) Creatinine 0.9 mg/dL (0.6-1.0) Estimated GFR (Cockcroft-Gault) 77.5 BUN/Creatinine Ratio 12 (6-20) Glucose Level 192 mg/dL (70-99) Calcium Level 9.5 mg/dL (8.5-10.1) Total Bilirubin 0.6 mg/dL (0.2-1.0) Aspartate Amino Transf (AST/SGOT) 57 U/L (15-37) Alanine Aminotransferase (ALT/SGPT) 131 U/L (14-59) Alkaline Phosphatase 99 U/L (46-116) Total Protein 7.8 g/dL (6.4-8.2) Albumin 4.0 g/dL (3.4-5.0) Albumin/Globulin Ratio 1.1 (1.0-1.7) Lipase 789 U/L (73-393) Laboratory Tests Test 07/19/19 09:00 Sodium Level 138 mmol/L (136-145) Potassium Level 3.2 mmol/L (3.5-5.1) Chloride Level 100 mmol/L (98-107) Carbon Dioxide Level 27 mmol/L (21-32) Anion Gap 11 (6-14) Blood Urea Nitrogen 11 mg/dL (7-20) Creatinine 0.9 mg/dL (0.6-1.0) Estimated GFR (Cockcroft-Gault) 77.5 BUN/Creatinine Ratio 12 (6-20) Glucose Level 192 mg/dL (70-99) Calcium Level 9.5 mg/dL (8.5-10.1) Total Bilirubin 0.6 mg/dL (0.2-1.0) Aspartate Amino Transf (AST/SGOT) 57 U/L (15-37) Alanine Aminotransferase (ALT/SGPT) 131 U/L (14-59) Alkaline Phosphatase 99 U/L (46-116) Total Protein 7.8 g/dL (6.4-8.2) Albumin 4.0 g/dL (3.4-5.0) Albumin/Globulin Ratio 1.1 (1.0-1.7) Lipase 789 U/L (73-393) Vitals/I & O Vital Sign - Last 24 Hours 07/18/19 07/18/19 07/18/19 07/18/19 13:51 15:00 17:48 17:52 Temp 97.4 97.4 Pulse 89 79 90 90 Resp 16 B/P (MAP) 181/87 193/83 (119) 195/82 (119) 195/82 Pulse Ox 94 O2 Delivery Room Air 07/18/19 07/18/19 07/18/19 07/19/19 19:55 22:08 22:09 03:00 Temp 97.8 97.7 97.8 97.7 Pulse 75 75 74 Resp 18 16 B/P (MAP) 170/86 170/86 (114) 167/81 (109) Pulse Ox 95 94 O2 Delivery Room Air Room Air Room Air 07/19/19 07/19/19 07/19/19 07/19/19 07:00 08:20 08:35 11:00 Temp 98.0 98.0 98.0 98.0 Pulse 68 68 74 Resp 16 16 B/P (MAP) 165/82 (109) 165/82 155/71 (99) Pulse Ox 95 94 O2 Delivery Room Air Room Air Room Air Intake and Output 07/18/19 07/18/19 07/19/19 15:00 23:00 07:00 Intake Total 120 ml 180 ml Balance 120 ml 180 ml Images ON UGI: Impression: 1. There are 2 foci of protuberance of contrast emanating from the duodenum as described, likely diverticula. Problem List Problems Medical Problems: (1) Acute pancreatitis Status: Acute Assessment Acute pancreatitis, resolved. Cause not 100% clear as imaging does not demonstrate calculous biliary disease, though still possible. No other clear reason, though duodenal diverticulum in about the area of the papilla. Plan of Care Note Recommended to her to have cholecystectomy as if biliary cause likely to recur soon and could be much more severe attack. YUNIER MOON MD Jul 19, 2019 13:36
[2019-07-19] MEDS: IV NORMAL SALINE 1000ML BAG 1,000 ML IV SCH (15:38)
--- NOTE | 2019-07-19 16:56 | PDOC ---
SURGICAL PROGRESS NOTE Subjective Pt reports pain has resolved. Giuliana PO. Vital Signs Vital Signs Date Time Temp Pulse Resp B/P (MAP) Pulse Ox O2 Delivery O2 Flow Rate FiO2 07/19/19 11:00 98.0 74 16 155/71 (99) 94 Room Air 98.0 I&O Intake and Output 07/19/19 07:00 Intake Total 300 ml Balance 300 ml Intake Oral 300 ml General: Alert, Oriented X3, Cooperative, No acute distress Abdomen: Soft, No tenderness Labs Laboratory Tests Test 07/19/19 09:00 Sodium Level 138 mmol/L (136-145) Potassium Level 3.2 mmol/L (3.5-5.1) Chloride Level 100 mmol/L (98-107) Carbon Dioxide Level 27 mmol/L (21-32) Anion Gap 11 (6-14) Blood Urea Nitrogen 11 mg/dL (7-20) Creatinine 0.9 mg/dL (0.6-1.0) Estimated GFR (Cockcroft-Gault) 77.5 BUN/Creatinine Ratio 12 (6-20) Glucose Level 192 mg/dL (70-99) Calcium Level 9.5 mg/dL (8.5-10.1) Total Bilirubin 0.6 mg/dL (0.2-1.0) Aspartate Amino Transf (AST/SGOT) 57 U/L (15-37) Alanine Aminotransferase (ALT/SGPT) 131 U/L (14-59) Alkaline Phosphatase 99 U/L (46-116) Total Protein 7.8 g/dL (6.4-8.2) Albumin 4.0 g/dL (3.4-5.0) Albumin/Globulin Ratio 1.1 (1.0-1.7) Lipase 789 U/L (73-393) Laboratory Tests Test 07/19/19 09:00 Sodium Level 138 mmol/L (136-145) Potassium Level 3.2 mmol/L (3.5-5.1) Chloride Level 100 mmol/L (98-107) Carbon Dioxide Level 27 mmol/L (21-32) Anion Gap 11 (6-14) Blood Urea Nitrogen 11 mg/dL (7-20) Creatinine 0.9 mg/dL (0.6-1.0) Estimated GFR (Cockcroft-Gault) 77.5 BUN/Creatinine Ratio 12 (6-20) Glucose Level 192 mg/dL (70-99) Calcium Level 9.5 mg/dL (8.5-10.1) Total Bilirubin 0.6 mg/dL (0.2-1.0) Aspartate Amino Transf (AST/SGOT) 57 U/L (15-37) Alanine Aminotransferase (ALT/SGPT) 131 U/L (14-59) Alkaline Phosphatase 99 U/L (46-116) Total Protein 7.8 g/dL (6.4-8.2) Albumin 4.0 g/dL (3.4-5.0) Albumin/Globulin Ratio 1.1 (1.0-1.7) Lipase 789 U/L (73-393) Problem List Problems Medical Problems: (1) Acute pancreatitis Status: Acute Assessment/Plan favor microlithiasis as culprit. Pt not interested in surgical intervention at this time. D/w pt R/R/B/A of cholecystectomy and risk of recurrent pancreatitis. She is not interested at this time. IVAN BRIZUELA MD Jul 19, 2019 16:56
--- NOTE | 2019-07-19 18:30 | NUR ---
Discharge Note: MARTY BARNES Discharge instructions and discharge home medications reviewed with Patient and a copy given. All questions have been answered and understanding verbalized. The following instructions and handouts were given: discharge instructions, education, follow up recommendations. Discontinued lines and drains: Peripheral IV discontinued intact. Patient discharged to Home or Self Care with Self via Ambulated off unit by RN to personal vehicle.
--- NOTE | 2019-07-19 20:01 | PDOC3 ---
Discharge Summary Visit Information Date of Admission: Jul 15, 2019 Date of Discharge: Jul 19, 2019 Admitting Diagnosis: Acute pancreatitis Final Diagnosis Problems Medical Problems: (1) Acute pancreatitis Status: Acute Brief Hospital Course Allergies Allergies Coded Allergies Type Severity Reaction Last Updated Verified No Known Drug Allergies 07/14/19 No Vital Signs Vital Signs Date Time Temp Pulse Resp B/P (MAP) Pulse Ox O2 Delivery O2 Flow Rate FiO2 07/19/19 11:00 98.0 74 16 155/71 (99) 94 Room Air 98.0 Lab Results Laboratory Tests Test 07/19/19 09:00 Sodium Level 138 mmol/L (136-145) Potassium Level 3.2 mmol/L (3.5-5.1) Chloride Level 100 mmol/L (98-107) Carbon Dioxide Level 27 mmol/L (21-32) Anion Gap 11 (6-14) Blood Urea Nitrogen 11 mg/dL (7-20) Creatinine 0.9 mg/dL (0.6-1.0) Estimated GFR (Cockcroft-Gault) 77.5 BUN/Creatinine Ratio 12 (6-20) Glucose Level 192 mg/dL (70-99) Calcium Level 9.5 mg/dL (8.5-10.1) Total Bilirubin 0.6 mg/dL (0.2-1.0) Aspartate Amino Transf (AST/SGOT) 57 U/L (15-37) Alanine Aminotransferase (ALT/SGPT) 131 U/L (14-59) Alkaline Phosphatase 99 U/L (46-116) Total Protein 7.8 g/dL (6.4-8.2) Albumin 4.0 g/dL (3.4-5.0) Albumin/Globulin Ratio 1.1 (1.0-1.7) Lipase 789 U/L (73-393) Laboratory Tests Test 07/19/19 09:00 Sodium Level 138 mmol/L (136-145) Potassium Level 3.2 mmol/L (3.5-5.1) Chloride Level 100 mmol/L (98-107) Carbon Dioxide Level 27 mmol/L (21-32) Anion Gap 11 (6-14) Blood Urea Nitrogen 11 mg/dL (7-20) Creatinine 0.9 mg/dL (0.6-1.0) Estimated GFR (Cockcroft-Gault) 77.5 BUN/Creatinine Ratio 12 (6-20) Glucose Level 192 mg/dL (70-99) Calcium Level 9.5 mg/dL (8.5-10.1) Total Bilirubin 0.6 mg/dL (0.2-1.0) Aspartate Amino Transf (AST/SGOT) 57 U/L (15-37) Alanine Aminotransferase (ALT/SGPT) 131 U/L (14-59) Alkaline Phosphatase 99 U/L (46-116) Total Protein 7.8 g/dL (6.4-8.2) Albumin 4.0 g/dL (3.4-5.0) Albumin/Globulin Ratio 1.1 (1.0-1.7) Lipase 789 U/L (73-393) Brief Hospital Course Ms Galeano is a 59 yo F w/ PMHx obesity, HTN admitted through ED for upper/mid abdominal pain began, gradually became more intense. Labs noted elevated lipase, AST, and ALT. MCV low at 75. On CT: fatty liver, distended GB w/ midl GB wall thickening, dilated CBD and PD, inflammation about duodenum and head of pancreas, fluid about the tail of pancreas, either small duodenal diverticulum or small bubble of free air behind head of pancreas, and uterine leiomyomas. Consulted GI and General Surgery 07/16 LIPASE 1284. RUQ PAIN BETTER. New headache 07/17: Pain and nausea overnight with clear liquid diet. NPO for MRCP today. Tentative plan for lap trista. No SOB or CP. Per GI - Cause not apparent on imaging, though microlithiasis or related to duodenal diverticula possible. Of the 2, biliary cause much more likely. 07/18: Pancreatitis, improved. We have all urged patient to consider cholecystectomy. She really just wants to try to advance diet and go home. No CP or SOB. Overnight had "funny feeling" with dinner. Lipase is a bit up today. She does not c/o pain. She wishes to go home, states she won't have time to follow up outside the hospital. Discussed risks, benefits and potential harm of leaving hospital, she does have outpatient appointment tomorrow, will have LFTs, lipase and pancreatitis low fat diet instructions with strict instructions for return if her pain returns again. Ultimately the etiology may have been a number of things from statin to microlithiasis. Consults: [facility] Assistant General surgery Gastroenterology Problem list: Acute pancreatitis Distended gallbladder with mild gallbladder wall thickening. Dilated common duct and pancreatic duct. Small bubbles of gas possibly in duodenal diverticula. Multiple calcified and noncalcified uterine leiomyomas. HTN morbid obesity Greater than 30 minutes spent on d/c Assessment Assessment HIDA - There is prompt hepatic clearance of tracer from the blood pool. There is homogeneous distribution throughout the liver. Tracer in common bile duct is identified beginning at 5 minutes. Tracer in expected location of the gallbladder is initially seen at 20 minutes. Tracer in small bowel is identified at 45 minutes. Tracer in gallbladder is confirmed with a right lateral image. IMPRESSION: The cystic duct and common bile duct are patent. Negative for acute cholecystitis. MRCP = Diffuse fatty infiltration of liver is present. Mild hepatomegaly seen. Spleen is unremarkable. There is no intrahepatic biliary dilatation. Common duct diameter of up to 1 cm noted. The common hepatic duct at its proximal aspect appears relatively narrow but this is most likely artifactual in nature due to to crossing hepatic arterial vasculature. No mass lesion or other suspicious associated finding is identified at this site. The main pancreatic ductal diameter is 0.4 cm. No pancreatic divisum. Minimal edema about the distal pancreatic tail noted. Mild wall thickening of the gallbladder is present. No cholelithiasis. Impression: Mild circumferential gallbladder wall thickening with edematous appearance. Correlate for possibility of cholecystitis. No cholelithiasis or other evidence of calculus involvement. Edema about the distal pancreas. Slight pancreatic ductal distention diffusely. Findings which correspond with a pancreatitis in the appropriate clinical setting. No collection. No mass lesion involving the pancreas on this noncontrast exam. Hepatomegaly. Fatty infiltration of the liver. Upper GI series - Barium Upper GI examination and small bowel follow-through was performed. [employer] radiograph demonstrates a nonobstructive bowel gas pattern. A few calcifications in the bilateral pelvis are likely phleboliths. Course and caliber of the esophagus are within normal limits, esophageal motility within normal limits. No hiatal hernia or esophageal stricture was identified. There is protuberance of contrast medial to the proximal descending duodenum apparently with folds coursing in this region believed to be a diverticulum. There is a larger focus of protuberance of contrast projecting superiorly from the transverse duodenum likely a larger diverticulum. Small bowel caliber is within normal limits, no significant flow-limiting stricture identified. Terminal ileum is considered within normal limits. Fluoroscopy time 3.2 minutes, 34 images Impression: 1. There are 2 foci of protuberance of contrast emanating from the duodenum as described, likely diverticula. Discharge Information Condition at Discharge: Improved Follow Up: Weeks (1) Disposition/Orders: D/C to Home Scheduled Losartan Potassium (Losartan Potassium) 100 Mg Tablet, 100 MG PO DAILY for H YPERTENSION, (Reported) Entered as Reported by: LIN LOMELI on 07/15/19 6857 Last Action: Converted on 07/16/19 [id number] by ABHI ALEXANDER MD Hemodynamically unstable?: No Is patient in severe pain?: Yes Is NPO status required?: No ABHI ALEXANDER MD Jul 19, 2019 20:00
== END 2019-07-19 18:10 | disposition home or self-care (01) | DRG 440 ==
LOC: ER 23:01 → 5 SOUTH 07-15 03:49
PROVIDERS: ADMIT Internal Medicine; ATTEND Internal Medicine
DX: K85.90 Acute pancreatitis without necrosis or infection, unspecified (principal); I10 Essential (primary) hypertension; Z82.49 Family history of ischemic heart disease and other diseases of the circulatory system; Z83.3 Family history of diabetes mellitus; Z80.1 Family history of malignant neoplasm of trachea, bronchus and lung; K76.0 Fatty (change of) liver, not elsewhere classified; E78.5 Hyperlipidemia, unspecified; D25.9 Leiomyoma of uterus, unspecified; D64.9 Anemia, unspecified; K82.8 Other specified diseases of gallbladder; K83.8 Other specified diseases of biliary tract; K57.10 Diverticulosis of small intestine without perforation or abscess without bleeding; E66.01 Morbid (severe) obesity due to excess calories; Z68.33 Body mass index [BMI] 33.0-33.9, adult; E61.1 Iron deficiency
CPT/HCPCS: 36415; 74177; 74181; 74249; 76700; 78226; 80053; 81001; 83540; 83550; 83690; 84478; 85025; 96365; 96374; 96375; A9537; J0360; J0780; J2405; J2543; J3010; J3490; J7030; Q9967; 99285-25; G0378